=== PATIENT | female | born 1970 | race Two or more races ===

== ENCOUNTER 2025-05-15 15:44 | Inpatient (IN) | payer MEDICAID ==
[~2025-05-15] VITALS: Ht 149.9 cm; Wt 53.8 kg
--- NOTE | 2025-05-15 16:30 | ED.PDOC ---
History of Present Illness HPI Comments This is a 54-year old female with past medical history of hypertension, hyperlipidemia and non insulin dependent diabetes mellitus who came in to the ED with the chief complaint of chest pain. She states that the chest pain started at 10am this morning, radiating from the throat down to the middle of the chest, rated as 8/10 in intensity, constant, dull in character and radiating to both arms. She has also had 4-5 episodes of vomiting since this morning, non blood tinged. She denies any shortness of breath, fever, history of GERD. We will admit patient for ischemic cardiac workup with Echo and cardiolite stress test as needed and recommended by hospitalist. EKG was reviewed by cardiology and read as old [place] and they recommended no intervention form cardiology at this time. Chief Complaint: Chest Pain Time Seen by MD: 15:51 Allergies: Coded Allergies: NO KNOWN ALLERGIES (Unverified , 05/15/25) Information Source: Patient, Relative Mode of Arrival: Ambulatory Severity: Moderate Timing: Hours Duration: Since onset Prehospital treatment: None Past Medical History PAST MEDICAL HISTORY: DM, High Lipids, HTN Surgical History: Denies all surgeries TRANSFORMER MECHANIC History: No Pertinent TRANSFORMER MECHANIC History Social History Smoker: Non-Smoker Alcohol: Denies ETOH Use Drugs: Denies Drug Use Constitutional: reports: fatigue; denies: chills, diaphoresis, fever, malaise, sweats, weakness, others EENTM: reports: others (blind in both eyes); denies: blurred vision, double vision, ear bleeding, ear discharge, ear drainage, ear pain, ear ringing, eye pain, eye redness, hearing loss, mouth pain, mouth swelling, nasal discharge, nose bleeding, nose congestion, nose pain, photophobia, tearing, throat pain, throat swelling, voice changes Respiratory: reports: SOB at rest, shortness of breath, SOB with excertion; denies: cough, hemoptysis, orthopnea, stridor, wheezing, others Cardiovascular: reports: chest pain; denies: dizzy spells, diaphoresis, Dyspnea on exertion, edema, irregular heart beat, left arm pain, lightheadedness, palpitations, PND, syncope, others Gastrointestinal: reports: vomiting; denies: abdomen distended, abdominal pain, blood streaked bowels, constipated, diarrhea, dysphagia, difficulty swallowing, hematemesis, melena, nausea, poor appetite, poor fluid intake, rectal bleeding, rectal pain, others Genitourinary: denies: abnormal vagina bleeding, burning, dyspareunia, dysuria, flank pain, frequency, hematuria, incontinence, pain, , vagina discharge, urgency, others Neurological: denies: dizziness, fainting, headache, left sided numbness, left sided weakness, numbness, paresthesia, pre-existing deficit, right sided numbness, right sided weakness, seizure, speech problems, tingling, tremors, weakness, others Musculoskeletal: denies: back pain, gout, joint pain, joint swelling, muscle pain, muscle stiffness, neck pain, others Integumetry: denies: bruises, change in color, change in hair/nails, dryness, laceration, lesions, lumps, rash, wounds, others Allergic/Immunocompromised: denies: Difficulty Healing, Frequent Infections, Hives, Itching, others Hematologic/Lymphatic: denies: anemia, blood clots, easy bleeding, easy bruising, swollen glands, others Endocrine: denies: excessive hunger, excessive sweating, excessive thirst, excessive urination, flushing, intolerance to cold, intolerance to heat, unexplained weight gain, unexplained weight loss, others Psychiatric: denies: anxiety, bipolar disorder, depression, hopeless, panic disorder, schizophrenia, sleepless, suicidal, others Physical Exam General Appearance: Normal HEENT: Normal ENT Inspection, Other (blind in both eyes) Neck: Full Range of Motion, Non-Tender, Normal Inspection Respiratory: No Respiratory Distress, Normal Breath Sounds Cardiovascular: No Edema, No Murmur, Normal Peripheral Pulses, Regular Rate/Rhythm Breast Exam: Normal Gastrointestinal: No Organomegaly, Non Tender, No Pulsatile Mass, Normal Bowel Sounds Genitalia: Deferred Pelvic: Deferred Rectal: Deferred Extremities: Normal capillary refill, Normal inspection, Normal range of motion, Non-tender, No pedal edema Neurologic: Abnormal Gait Cerebellar Function: Normal Reflexes: Normal Skin: Normal Color Lymphatic: No Adenopathy Was a procedure done? Was a procedure done?: No Differential Dx Considerations may include: ACS, NSTEMI, CHF, costochondritis, GERD X-Ray, Labs, Meds, VS Vital Signs Date Time Temp Pulse Resp B/P (MAP) Pulse Ox O2 Delivery O2 Flow Rate FiO2 12/29/25 15:57 122 05/15/25 15:48 97.8 127 18 109/73 94 97.8 Lab Test 05/15/25 16:04 Range/Units White Blood Count 11.8 H 4.4-10.8 10^3/uL Red Blood Count 5.15 4.0-5.20 10^6/uL Hemoglobin 14.9 12.2-16.2 g/dL Hematocrit 43.8 36.0-46.0 % Mean Corpuscular Volume 85.0 80.0-100.0 fL Mean Corpuscular Hemoglobin 28.9 28.0-32.0 pg Mean Corpuscular Hemoglobin Concent 34.0 32.0-36.0 g/dL Red Cell Distribution Width 13.5 11.8-14.3 % Platelet Count 272 140-450 10^3/uL Mean Platelet Volume 9.2 6.9-10.8 fL Neutrophils (%) (Auto) 86.9 H 37.0-80.0 % Lymphocytes (%) (Auto) 11.3 10.0-50.0 % Monocytes (%) (Auto) 1.2 0.0-12.0 % Eosinophils (%) (Auto) 0.1 0.0-7.0 % Basophils (%) (Auto) 0.5 0.0-2.0 % Neutrophils # (Auto) 10.3 H 1.6-8.6 10 ^3/uL Lymphocytes # (Auto) 1.3 0.4-5.4 10 ^3/uL Monocytes # (Auto) 0.1 0-1.3 10 ^3/uL Eosinophils # (Auto) 0 0-0.8 10 ^3/uL Basophils # (Auto) 0.1 0-0.2 10 ^3/uL Nucleated Red Blood Cells 0.0 % Sodium Level 136 136-145 mmol/L Potassium Level 3.5 3.5-5.1 mmol/L Chloride Level 94 L 98-107 mmol/L Carbon Dioxide Level 27 20-31 mmol/L Anion Gap 15 5-15 Blood Urea Nitrogen 13 9-23 mg/dL Creatinine 1.06 H 0.550-1.02 mg/dL Glomerular Filtration Rate Calc 62 >90 mL/min BUN/Creatinine Ratio 12.3 10.0-20.0 Serum Glucose 405 *H 74-106 mg/dL Hemoglobin A1c Pending Calcium Level 9.8 8.7-10.4 mg/dL Troponin I High Sensitivity 545 *H </=34 ng/L Time of 1ST Reevaluation: 16:30 Reevaluation 1ST: Unchanged Patient Education/Counseling: Diagnosis, Treatment, Prognosis Family Education/Counseling: Diagnosis, Treatment, Prognosis SEPSIS Sepsis Screen Date sepsis recognized/suspect: May 15, 2025 Time Sepsis recognized/suspect: 1548 Recent Procedure: No On Antibiotic Therapy: No Respiratory Rate >20: No Heart Rate >90: Yes (127) Temp<36 C (96.8 F) or >38.3 C: No SBP <90 or MAP <65 mmHG: No New Acute Mental Status Change: No Is the patient on CPAP, BIPAP,: No Physician Orders Troponin-I Hs (05/15/25 15:46) Electrocardigram (05/15/25 15:46) Troponin-I Hs (05/15/25 16:46) Troponin-I Hs (05/15/25 18:46) Electrocardigram (05/15/25 16:46) Electrocardigram (05/15/25 18:46) Complete Blood Count (05/15/25 16:17) Basic Metabolic Panel (05/15/25 16:17) Chest Xray 1 View (05/15/25 16:17) Vital Signs Date Time Temp Pulse Resp B/P (MAP) Pulse Ox O2 Delivery O2 Flow Rate FiO2 05/15/25 15:57 122 05/15/25 15:48 97.8 127 18 109/73 94 97.8 Laboratory Tests Test 05/15/25 16:04 White Blood Count 11.8 10^3/uL (4.4-10.8) H Departure 1 Departure Time of Disposition: 16:30 Impression: Primary Impression: Chest pain Additional Impressions: Acute myocardial infarction Musculoskeletal chest pain Angina pectoris Disposition: 30 STILL A PATIENT Condition: Fair Critical Care Note Critical Care Time?: No Stability Stability form required: No Heart Score Heart Score: Heart Score Response (Comments) Value History Moderate Suspicious 1 EKG Repolarization Disturb 1 Age 45-64 1 Risk Factors >3 or Hx ASHD 2 Troponin N/A 0 Total 5 LIZETTE STOUT RESIDENT May 15, 2025 16:30
[2025-05-15 16:35] LABS: Hematocrit 43.8 % (36.0-46.0); Hemoglobin 14.9 g/dL (12.2-16.2); Mean Corpuscular Hemoglobin 28.9 pg (28.0-32.0); Mean Corpuscular Volume 85.0 fL (80.0-100.0); Nucleated Red Blood Cells % 0.0 %
[2025-05-15 16:38] LABS: Sodium 136 mmol/L (136-145)
[2025-05-15 16:39] LABS: Anion Gap 15 (5-15); Carbon Dioxide 27 mmol/L (20-31)
[2025-05-15 16:40] LABS: Calcium 9.8 mg/dL (8.7-10.4); Chloride 94 mmol/L (98-107); Potassium 3.5 mmol/L (3.5-5.1)
[2025-05-15 16:45] LABS: BUN/Creatinine Ratio 12.3 (10.0-20.0); Blood Urea Nitrogen 13 mg/dL (9-23)
[2025-05-15 16:58] LABS: Glucose 405 mg/dL (74-106)
--- NOTE | 2025-05-15 16:59 | DVH ---
CHEST RADIOGRAPH INDICATION: chest pain TECHNIQUE: Single frontal view of the chest was obtained COMPARISON: None FINDINGS: Lines and Tubes: None Lungs: No focal consolidation. Pleura: No effusion. No pneumothorax. Cardiomediastinal contours: Unremarkable Bones: No acute osseous abnormality. IMPRESSION: 1. No acute cardiopulmonary disease.
[2025-05-15] MEDS: ONDANSETRON HCL 4 MG/2 ML VIAL IV ONE (18:58)
[2025-05-15] MEDS: InsuLIN REG 1unit/0.01ml Soln (100units/ml) SC ONE (19:00)
[2025-05-15 19:27] LABS: INR 0.97 (0.9-1.15); Partial Thromboplastin Time 26.8 SEC (24.5-34.5); Prothrombin Time 10.3 sec (9.3-11.8)
[2025-05-15 19:47] VITALS: PULSE 116; O2SAT 94
[2025-05-15] MEDS ORDERED: DOCUSATE SOD 100 MG CAP PO PRN (20:00)
[2025-05-15] MEDS ORDERED: ACETAMINOPHEN 325 MG TAB PO PRN (20:00)
[2025-05-15] MEDS ORDERED: HYDROcodone-ACET 5/325MG TAB PO PRN (20:00)
[2025-05-15] MEDS ORDERED: DEXTROSE (50%) 50ML SYRG IV PRN (20:00)
[2025-05-15] MEDS ORDERED: HEPARIN DRIP/D5W 100UNITS/ML 250 ML IV SCH (20:15)
[2025-05-15] MEDS ORDERED: HEPARIN SODIUM (PORCINE) 5000 UNITS/ML 1ML VIAL IV ONE (20:15)
[2025-05-15] MEDS: HEPARIN SODIUM (PORCINE) 5000 UNITS/ML 1ML VIAL IV ONE (20:45)
[2025-05-15] MEDS: HEPARIN DRIP/D5W 100UNITS/ML 250 ML IV SCH (20:48)
[2025-05-15] MEDS: MORPHINE SULFATE INJ 2 MG/ml SYRG IV ONE (21:32)
[2025-05-15] MEDS: SODIUM CHLORIDE 0.9% 1,000 ML IV SCH (21:43)
[2025-05-15] MEDS: ACCU-CHEK COMFORT CURVE STRIP VI SCH (21:53)
[2025-05-15] MEDS: InsuLIN REG 1unit/0.01ml Soln (100units/ml) SC SCH (22:06)
[2025-05-15] MEDS: METOPROLOL TARTRATE 50 MG TAB PO SCH (22:07)
--- NOTE | 2025-05-15 22:57 | DVHHP2 ---
History of Present Illness Reason for Visit: Acute coronary syndrome History of Present Illness The patient is a 54-year-old female legally blind with past medical history of diabetes mellitus, hyperlipidemia, and hypertension who presented to [facility] ED with complaint of chest pain. Son/patient reports that she has been experiencing substernal chest pain since this morning, radiating from the throat down to the middle of the chest, both arms, rated 8/10 numeric scale, constant, dull sensation, associated with episodes of vomiting, getting worse that prompted this visit. Patient was seen and evaluated in the ED, laboratory data shows WBC 11.8, platelets 272, sodium 136, potassium 3.5, BUN 13, creatinine 1.06, GFR 62, glucose 405, hemoglobin A1c 11.4, TSH 0.61, calcium 9.8, troponin 545 trending up, blood pressure 139/89, heart rate 114,, temperature 99.1 F, O2 saturation 96% on oxygen. Chest x-ray show no acute cardiopulmonary disease. EKG was reviewed by cardiology and read as old [place] and they recommended no intervention from cardiology at this time. Please see [facility] orders section in the computer. On my assessment, patient denied chest pain at this moment, no headache, dizziness, diaphoresis, currently on oxygen, no diarrhea, nausea, vomiting, fever, no chills. Patient was admitted for further evaluation and medical management. Past Medical History DM, High Lipids, HTN Past Surgical History Denies all surgeries Family History Reviewed, noncontributory to the management of this case. Past Social History The patient lives at home, denies smoking, alcohol or illicit drugs abuse. Review of Systems Constitutional: Yes: Weakness; No: Fever, Chills, Sweats, Malaise, Other Eyes: Other (Blind in both eyes); No: Pain, Vision change, Conjunctivae inflammation, Eyelid inflammation, Redness ENT: No: Ear pain, Ear discharge, Nose pain, Nose discharge, Nose congestion, Mouth pain, Mouth swelling, Throat pain, Throat swelling, Other Respiratory: Shortness of breath, SOB with excertion, Other (SOB at rest); No: Cough, Dry, Wheezing, Hemoptysis, Pleuritic Pain, Sputum, Wheezing Cardiovascular: Chest Pain; No: Palpitations, Orthopnea, Paroxysmal Noc. Dyspnea, Edema, Lt Headedness, Other Gastrointestinal: Vomiting; No: Nausea, Abdominal Pain, Diarrhea, Constipation, Melena, Hematochezia, Other Genitourinary: No Dysuria, No Frequency, No Incontinence, No Hematuria, No Retention, No Other Musculoskeletal: No: other, neck pain, shoulder pain, arm pain, back pain, hand pain, leg pain, foot pain Skin: No: Rash, Lesions, Jaundice, Bruising, Other Neurological: No: Weakness, Numbness, Incoordination, Change in speech, Confusion, Seizures, Other Allergies: Coded Allergies: NO KNOWN ALLERGIES (Unverified , 05/15/25) Medications Current Medications Medications Dose Ordered Sig/Sunita Route Start Time Stop Time Status Last Admin Dose Admin Aspirin 81 mg DAILY PO 05/16/25 10:00 Metoprolol Tartrate 50 mg BID PO 05/15/25 22:00 05/15/25 22:07 50 MG Amlodipine Besylate 5 mg DAILY PO 05/16/25 10:00 Diagnostic Test (Pha) 1 strip IQ4HR 05/15/25 20:00 05/15/25 21:53 1 STRIP Insulin Human Regular IQ4HR SC 05/15/25 20:00 05/15/25 22:06 9 UNITS Dextrose 50 ml UD PRN IV 05/15/25 20:00 Sodium Chloride 1,000 ml @ 60 mls/hr [id number] IV 05/15/25 20:00 05/15/25 21:43 60 MLS/HR Acetaminophen/ Hydrocodone Bitart 1 tab Q4HP PRN PO 05/15/25 20:00 Ondansetron HCl 4 mg Q4HP PRN IV 05/15/25 20:00 Docusate Sodium 100 mg BIDPRN PRN PO 05/15/25 20:00 Acetaminophen 650 mg Q6HP PRN PO 05/15/25 20:00 Heparin Sodium/ Dextrose 250 ml @ 6 mls/hr Q24H IV 05/15/25 20:30 05/15/25 20:48 6 MLS/HR Exam Vital Signs Vital Signs Date Time Temp Pulse Resp B/P (MAP) Pulse Ox O2 Delivery O2 Flow Rate FiO2 05/15/25 22:07 117 120/59 05/15/25 19:47 99.3 16 94 99.3 05/15/25 19:47 Room Air* 0 21 General Appearance: Alert, Oriented X3, Cooperative, No acute distress HEENT: Atraumatic, PERRLA, EOMI, Mucous membr. moist/pink Respiratory: Normal air movement Cardiovascular: Regular rate, Normal S1, Normal S2, No murmurs Abdominal: Normal bowel sounds, Soft, No tenderness, No hepatospenomegaly, No masses Extremities: No clubbing, No cyanosis, No edema, Normal pulses, No tenderness/swelling Skin: No rashes, No significant lesion Neuro: Normal speech, Normal tone, Sensation intact, Cranial nerves 3-12 NL, Reflexes 2+, Other (Generalized weakness) Psych/Mental Status: Mental status NL, Mood NL Labs/Xrays Labs Test 05/15/25 21:51 05/15/25 19:30 05/15/25 17:10 05/15/25 16:04 Range/Units POC Glucose 264 H 70-106 mg/dl Troponin I High Sensitivity 2814 *H </=34 ng/L Thyroid Stimulating Hormone (TSH) 0.61 0.55-4.78 uIU/mL White Blood Count 11.8 H 4.4-10.8 10^3/uL Red Blood Count 5.15 4.0-5.20 10^6/uL Hemoglobin 14.9 12.2-16.2 g/dL Hematocrit 43.8 36.0-46.0 % Mean Corpuscular Volume 85.0 80.0-100.0 fL Mean Corpuscular Hemoglobin 28.9 28.0-32.0 pg Mean Corpuscular Hemoglobin Concent 34.0 32.0-36.0 g/dL Red Cell Distribution Width 13.5 11.8-14.3 % Platelet Count 272 140-450 10^3/uL Mean Platelet Volume 9.2 6.9-10.8 fL Neutrophils (%) (Auto) 86.9 H 37.0-80.0 % Lymphocytes (%) (Auto) 11.3 10.0-50.0 % Monocytes (%) (Auto) 1.2 0.0-12.0 % Eosinophils (%) (Auto) 0.1 0.0-7.0 % Basophils (%) (Auto) 0.5 0.0-2.0 % Neutrophils # (Auto) 10.3 H 1.6-8.6 10 ^3/uL Lymphocytes # (Auto) 1.3 0.4-5.4 10 ^3/uL Monocytes # (Auto) 0.1 0-1.3 10 ^3/uL Eosinophils # (Auto) 0 0-0.8 10 ^3/uL Basophils # (Auto) 0.1 0-0.2 10 ^3/uL Nucleated Red Blood Cells 0.0 % Prothrombin Time 10.3 9.3-11.8 sec Prothrombin Time INR 0.97 0.9-1.15 Activated Partial Thromboplast Time 26.8 24.5-34.5 SEC Sodium Level 136 136-145 mmol/L Potassium Level 3.5 3.5-5.1 mmol/L Chloride Level 94 L 98-107 mmol/L Carbon Dioxide Level 27 20-31 mmol/L Anion Gap 15 5-15 Blood Urea Nitrogen 13 9-23 mg/dL Creatinine 1.06 H 0.550-1.02 mg/dL Glomerular Filtration Rate Calc 62 >90 mL/min BUN/Creatinine Ratio 12.3 10.0-20.0 Serum Glucose 405 *H 74-106 mg/dL Hemoglobin A1c 11.4 H <5.7 % A1C Calcium Level 9.8 8.7-10.4 mg/dL PATIENT: TOO BOSCHAACCT: [id number] UNIT: [id number] : 1970 LOC: ER ROOM / BED: / AGE / SEX: 54 / F ADM STATUS: REG ER SERVICE 16 ORDERING PHYSICIAN: LIZETTE STOUT RESIDENT PROCEDURE(s): CXR1 - CHEST XRAY 1 VIEW REASON: chest pain ORDER NUMBER(s): [id number], ACCESSION NUMBER(s): [id number] CHEST RADIOGRAPH INDICATION: chest pain TECHNIQUE: Single frontal view of the chest was obtained COMPARISON: None FINDINGS: Lines and Tubes: None Lungs: No focal consolidation. Pleura: No effusion. No pneumothorax. Cardiomediastinal contours: Unremarkable Bones: No acute osseous abnormality. IMPRESSION: 1. No acute cardiopulmonary disease. SEPSIS Sepsis Screen Date sepsis recognized/suspect: May 15, 2025 Time Sepsis recognized/suspect: 1954 Recent Procedure: No On Antibiotic Therapy: No Respiratory Rate >20: No Heart Rate >90: No Temp<36 C (96.8 F) or >38.3 C: No SBP <90 or MAP <65 mmHG: No New Acute Mental Status Change: No Is the patient on CPAP, BIPAP,: No Physician Orders Electrocardigram (05/15/25 15:46) Electrocardigram (05/15/25 16:46) Electrocardigram (05/15/25 18:46) Chest Xray 1 View (05/15/25 16:17) * Cardiology Consult (05/15/25 17:02) Stat Ekg For Chest Pain (05/15/25 17:05) Urinalysis (05/15/25 17:16) Heparin Per Pharmacy Protocol (05/15/25 18:38) Aspirin Chewable Tablet (05/16/25 10:00) Consistent Carb(Ccho)Diabetes (05/16/25 Breakfast) Metoprolol Tartrate Tablet (Lopressor Ta (05/15/25 22:00) Amlodipine Tablet (Norvasc Tablet) (05/16/25 10:00) Glucose Blood (Accu-Chek Comfort Curve T (05/15/25 20:00) Insulin R (Human) (Insulin R) (05/15/25 20:00) Dextrose 50% Syringe (05/15/25 20:00) Allergies (05/15/25 19:55) Code Status (05/15/25 19:55) Sodium Chloride 0.9% (05/15/25 20:00) Oxygen Per Hour (05/15/25 19:55) Hydrocodone-Acet 5/325mg Tab ([place] 5/32 (05/15/25 20:00) Ondansetron Hcl (Zofran) (05/15/25 20:00) Docusate Sodium Capsule (Colace Capsule) (05/15/25 20:00) Complete Blood Count (05/16/25 04:00) Comprehensive Metabolic Panel (05/16/25 04:00) Condition: Serious (05/15/25 19:55) Acetaminophen Tablet (Tylenol Tablet) (05/15/25 20:00) Bedrest With Bathroom Privileg (05/15/25 19:55) Maintain Bed Rest (05/15/25 19:55) Sequential Compression Device (05/15/25 ) Platelet Monitoring (05/15/25 20:01) Heparin Per Standardized Proce (05/15/25 20:01) Discontinue All Im Injections (05/15/25 20:01) Heparin Drip/D5w 100units/Ml (05/15/25 20:30) PTPTT (05/16/25 02:45) Vital Signs Date Time Temp Pulse Resp B/P (MAP) Pulse Ox O2 Delivery O2 Flow Rate FiO2 05/15/25 22:07 117 120/59 05/15/25 19:47 99.3 116 16 136/80 (98) 94 99.3 05/15/25 19:47 116 94 Room Air* 0 21 05/15/25 18:45 99.1 117 12 139/89 (106) 96 99.1 05/15/25 18:25 117 05/15/25 17:55 99.6 120 20 138/79 (98) 96 99.6 05/15/25 15:57 122 05/15/25 15:48 97.8 127 18 109/73 94 97.8 Laboratory Tests Test 05/15/25 16:04 White Blood Count 11.8 10^3/uL (4.4-10.8) H Medications Medications Dose Ordered Sig/Sunita Route Start Time Stop Time Status Last Admin Dose Admin Aspirin 325 mg ONCE ONCE PO 05/15/25 17:15 05/15/25 17:16 DC 05/15/25 18:58 325 MG Diagnostic Test (Pha) 1 strip IQ4HR 05/15/25 20:00 05/15/25 21:53 1 STRIP Heparin Sodium (Porcine) 3,000 units ONCE ONCE IV 05/15/25 17:15 05/15/25 17:16 DC 05/15/25 20:45 3,000 UNITS Heparin Sodium/ Dextrose 250 ml @ 6 mls/hr Q24H IV 05/15/25 20:30 05/15/25 20:48 6 MLS/HR Insulin Human Regular IQ4HR SC 05/15/25 20:00 05/15/25 22:06 9 UNITS Insulin Human Regular 5 units ONCE ONCE SC 05/15/25 17:15 05/15/25 17:37 DC 05/15/25 19:00 5 UNITS Metoprolol Tartrate 50 mg BID PO 05/15/25 22:00 05/15/25 22:07 50 MG Ondansetron HCl 4 mg ONCE ONCE IV 05/15/25 17:00 05/15/25 17:15 DC 05/15/25 18:58 4 MG Sodium Chloride 1,000 ml @ 60 mls/hr [id number] IV 05/15/25 20:00 05/15/25 21:43 60 MLS/HR Assessment/Plan Assessment/Plan Acute coronary syndrome Acute respiratory distress Diabetes mellitus with hyperglycemia Uncontrolled diabetes mellitus Generalized weakness Plan 1. Admit to telemetry unit 2. Breathing treatment 3. Pain control management 4. Management of fluids and electrolytes 5. Consultation for Cardiology 6. Diagnostic tests chest x-ray 7. DVT prophylaxis-on heparin 8. Repeat labs CBC, CMP in a.m. 9. Continue with current medical management 10. Treatment plan discussed with patient and RN. Patient verbalized understanding. Plan discussed with: Patient, Other (RN) My Orders Orders - KAYLA STOLL DNP Procedure Category Date Status Time Aspirin Chewable PHA 05/16/25 In Process Tablet 10:00 Consistent DIET 05/16/25 Transmitted Carb(Ccho)Diabetes Breakfast Metoprolol Tartrate PHA 05/15/25 In Process Tablet (Lopressor Ta 22:00 Amlodipine Tablet PHA 05/16/25 In Process (Norvasc Tablet) 10:00 Glucose Blood PHA 05/15/25 In Process (Accu-Chek Comfort 20:00 Insulin R (Human) PHA 05/15/25 In Process (Insulin R) 20:00 Dextrose 50% Syringe PHA 05/15/25 In Process 20:00 Allergies CASIE 05/15/25 In Process 19:55 Code Status CODE 05/15/25 Transmitted 19:55 Sodium Chloride 0.9% PHA 05/15/25 In Process 20:00 Oxygen Per Hour RT 05/15/25 Transmitted 19:55 Hydrocodone-Acet PHA 05/15/25 In Process 5/325mg Tab ([place] 20:00 Ondansetron Hcl PHA 05/15/25 In Process (Zofran) 20:00 Docusate Sodium PHA 05/15/25 In Process Capsule (Colace 20:00 Complete Blood Count LAB 05/16/25 Verified 04:00 Comprehensive LAB 05/16/25 Verified Metabolic Panel 04:00 Condition: Serious CASIE 05/15/25 In Process 19:55 Acetaminophen Tablet PHA 05/15/25 In Process (Tylenol Tablet) 20:00 Bedrest With Bathroom CASIE 05/15/25 In Process Privileg 19:55 Maintain Bed Rest CASIE 12/29/25 In Process 19:55 Sequential CASIE 05/15/25 In Process Compression Device Problem List: (1) Acute coronary syndrome (2) Acute respiratory distress (3) Diabetes mellitus with hyperglycemia (4) Uncontrolled diabetes mellitus (5) Generalized weakness Date of Service: May 15, 2025 Billing Provider: KAYLA STOLL DNP Common Visit Codes: [id number] INP/OBS CARE (HIGH) KAYLA STOLL DNP May 15, 2025 22:57
[2025-05-15] MEDS ORDERED: NITROGLYCERIN 0.4 MG SL TAB SL PRN (23:00)
[2025-05-15] MEDS ORDERED: MORPHINE SULFATE INJ 2 MG/ml SYRG IV PRN (23:00)
[2025-05-16] VITALS (51 sets, daily range): BP systolic 77–140; BP diastolic 38–80; PULSE 76–120; RESP 10–20; TEMP 98.2; O2SAT 91–100
[2025-05-16 02:13] LABS: Urine Protein, UAD Negative (Negative)
[2025-05-16] MEDS: SODIUM CHLORIDE 0.9% 1,000 ML IV ONE (02:35)
[2025-05-16] MEDS: DOPamine 1600MCG/ML D5W 250 ML IV SCH (03:45)
[2025-05-16] MEDS: DOPamine 1600MCG/ML D5W 250 ML IV ONE (03:53)
[2025-05-16 03:57] LABS: INR 1.04 (0.9-1.15); Prothrombin Time 11.0 sec (9.3-11.8)
[2025-05-16 03:58] LABS: Alanine Aminotransferase 35 U/L (7-40); Albumin 4.2 g/dL (3.2-4.8); Alkaline Phosphatase 75 U/L (46-116); Anion Gap 10 (5-15); BUN/Creatinine Ratio 15.7 (10.0-20.0); Blood Urea Nitrogen 18 mg/dL (9-23); Calcium 9.0 mg/dL (8.7-10.4); Carbon Dioxide 29 mmol/L (20-31); Chloride 104 mmol/L (98-107); Glucose 88 mg/dL (74-106); Partial Thromboplastin Time 74.3 SEC (24.5-34.5); Sodium 143 mmol/L (136-145); Total Protein 6.9 g/dL (5.7-8.2)
[2025-05-16 03:59] LABS: Bilirubin, Total 0.4 mg/dL (0.2-1.0)
[2025-05-16 04:02] LABS: Potassium 3.3 mmol/L (3.5-5.1)
[2025-05-16] MEDS: ONDANSETRON HCL 4 MG/2 ML VIAL IV PRN (04:22)
[2025-05-16] MEDS: PROCHLORPERAZINE EDISYLATE 5 MG/ML 2ML VIAL IV PRN (05:28)
[2025-05-16 06:18] LABS: Hematocrit 40.1 % (36.0-46.0); Hemoglobin 13.3 g/dL (12.2-16.2); Mean Corpuscular Hemoglobin 28.3 pg (28.0-32.0); Mean Corpuscular Volume 85.5 fL (80.0-100.0); Nucleated Red Blood Cells % 0.1 %
--- NOTE | 2025-05-16 06:57 | ECG ---
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
--- NOTE | 2025-05-16 07:00 | ECG ---
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
--- NOTE | 2025-05-16 07:00 | ECG ---
[facility] Test Date: 2025-05-15 Test Time: 17:06:45 Pat Name: ASHUTOSH KENNY Department: ED Room: [address] [place] [address] Gender: F Job Boss: GAMA : 1970 Requested By: PRAVEEN JEFFERY Order Number: [id number] Reading MD: Geovany Wyatt Measurements Intervals [place] Rate: 123 P: 92 NM: 138 QRS: 71 QRSD: 99 T: 210 QT: 326 QTc: 467 Interpretive Statements Sinus tachycardia Inferior infarct, age indeterminate Anterolateral infarct, age indeterminate Baseline wander in lead(s) V3,V5,V6 Electronically Signed On 05-18-2025 17:04:29 PST by Geovany Wyatt Please click the below link to view image of tracing.
[2025-05-16] MEDS: IODIXANOL 320MG/ML 100ML BTL IV ONE (07:34)
[2025-05-16] MEDS: HEPARIN IN NS 1000Units/500mL 1,500 ML ONE (07:34)
[2025-05-16] MEDS: MIDAZOLAM HCL 2MG/2ML 2ml VIAL (1mg/ml) ONE (07:36)
[2025-05-16] MEDS: fentaNYL CITRATE 100 MCG/2 ML VL ONE (07:36)
[2025-05-16] MEDS: ANGIOMAX 250 MG VIAL IV ONE (07:36)
[2025-05-16] MEDS: SODIUM CHL 0.9% 50 ML ONE (07:36)
[2025-05-16] MEDS: LIDOCAINE 2%HCL (LOCAL ANESTH.) INJ 20ML MDV ONE (07:36)
[2025-05-16] MEDS: NOREPINEPHRINE 8 MG/250ML KIT 0 ML IV ONE (08:31)
--- NOTE | 2025-05-16 09:48 | DVHOP ---
DATE OF SURGERY: 05/16/2025 TECHNIQUE PERFORMED: * Emergency case. * Ultrasound of the right femoral artery. * Insertion of a 6-Azerbaijani arterial line in the right femoral artery under fluoroscopic guidance. * Left and right heart catheterization. * Left ventriculogram. * [place] selective left and right coronary artery angiography. COMPLICATIONS: None. ASSISTANTS: Assisted by our staff here are Sonia Shipman, Nomi, Clare, and Aman. INDICATIONS: The indication for followup is having acute myocardial infarction; QS pattern in 2, 3, and aVF; and troponin now went up to 29,000. DESCRIPTION OF PROCEDURE: In a standard manner, risks, benefits and alternatives have been discussed kidney failure. Right groin was shaved, was cleaned with soap and Betadine. Ultrasound was done. Lidocaine was given. IV Versed and fentanyl were given. The artery was punctured under ultrasound guidance. A wire was passed. The needle was removed. A 6-Azerbaijani arterial line was placed in a standard manner under fluoroscopy and JL 3.5 guidewire and done with the help of the JR 3.5 catheter was performed. At the end of the procedure, we also did a left heart catheterization and a left ventriculogram was done in the CRYSTAL view with a total of about 20 mL of dye. The procedure was completed. IMPRESSION: * Normal left main. * Left anterior descending artery in its mid region has critical narrowing in the range of 95% plus. 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 * The right coronary artery is 100% blocked at the proximal one-third region. REBECCA 0 flow. * The left ventricle revealed inferior wall hypokinesis and a dilated left ventricle. Ejection fraction is in the range of about 20-25%. PLAN OF ACTION: At this time, we need to do intervention on the right coronary artery. Tay Quintero MD MP/KERRY TID: [id number] RECEIPT: [id number] JOSEPH
--- NOTE | 2025-05-16 10:50 | DVHOP ---
TECHNIQUE PERFORMED: * Emergency case. * Ultrasound of the right femoral artery. * Management of conscious sedation. * A fluoroscopic-guided insertion of a 6-Italian arterial line from the right femoral artery. * Right coronary artery angiography. * The mechanical thrombectomy of the right coronary artery with the help of the Penumbra catheter. * Balloon angioplasty of the right coronary artery with a 1.5 x 20 mm length semi-compliant balloon. * Balloon angioplasty of proximal, mid, and distal lesion of the right coronary artery with a 2.0 x 30 mm length semi-compliant balloon. * The right iliofemoral artery angiography. * Arteriotomy and Angio-Seal of the right femoral artery. COMPLICATIONS: None. ASSISTANTS: Assisted by Ramonita. Other assistants here are Sonia, Nomi, and Clare. INDICATIONS: Acute inferior wall myocardial infarction, Q wave pattern II, III, and aVF. DESCRIPTION OF PROCEDURE: The patient's procedures, risks and benefits discussed. Standard manner, the patient had been brought to the medical laboratory technician. The patient's right groin was shaved, was cleaned with soap and Betadine. A 6-Italian arterial line also had been placed under ultrasound guidance. A 6-Italian JR 3.5 guiding catheter was passed. Angiomax was started and subsequently we put a Prowater wire, which went into the middle region of the right coronary artery. Did not advance further, so now I have put a ChoICE extra support wire, which was able to go through the lesion all the way to the posterolateral branch of the right coronary artery. Subsequently, we have put a Penumbra catheter. Mechanical thrombectomy was done and then subsequently a 1.5 balloon was passed and balloon angioplasty was done. Then a 2.0 balloon was passed and approximately mid and distally balloon angioplasty was done. Subsequently, now again a 1.5 balloon was passed from mid distally and angioplasty of the entire right coronary artery was done well. Procedure went well. At this time, we have not done any stenting because the patient has severe chronic coronary artery disease and she may qualify for open heart surgery and her artery and please also note that the posterior descending artery and posterolateral branch are very tiny branches. Now subsequently, the balloon, wire, catheter all have been discontinued. The right iliofemoral artery angiography was done. Arteriotomy and Angio-Seal was done. IMPRESSION: Prior to performing the procedure: Right coronary artery proximally 100% acute on chronic occlusion. REBECCA grade 0 flow. Calcified artery, type 3 lesion and right coronary artery considered to be a dominant artery. Postprocedure, REBECCA grade 3 flow. No spasm, no dissection, no thrombosis. Calcified artery with REBECCA grade 3 flow has been noted from all the way from the mid region all the way to the distal region of the right coronary artery. PLAN OF ACTION: At this time, advised aspirin one a day. Transfer to higher level [facility]. The patient will call if she can qualify for open heart surgery. Discussed along with the patient's son in person. Tay Quintero MD MP/SONYA TID: [id number] RECEIPT: [id number]
--- NOTE | 2025-05-16 12:27 | DVHPN2 ---
Subjective Patient denies any chest pain at this time Reviewed: Care Plan, H&P, Labs, Medications Changes from previous H/P or p: No Changes General: Per HPI Eyes: No Pain, No Vision change, No Conjunctivae inflammation, No Eyelid inflammation; Other (Blind in both eyes); No Redness ENT: No Ear pain, No Ear discharge, No Nose pain, No Nose discharge, No Nose congestion, No Mouth pain, No Mouth swelling, No Throat pain, No Throat swelling, No Other Cardiovascular: Chest Pain; No Palpitations, No Orthopnea, No Paroxysmal Noc. Dyspnea, No Edema, No Lt Headedness, No Other Respiratory: No Cough, No Dry; Shortness of breath, SOB with excertion; No Wheezing, No Hemoptysis, No Pleuritic Pain, No Sputum; Other (SOB at rest) Gastrointestinal: No Nausea; Vomiting; No Abdominal Pain, No Diarrhea, No Constipation, No Melena, No Hematochezia, No Other Genitourinary: No Dysuria, No Frequency, No Incontinence, No Hematuria, No Retention, No Other Musculoskeletal: No other, No neck pain, No shoulder pain, No arm pain, No back pain, No hand pain, No leg pain, No foot pain Skin: No Rash, No Lesions, No Jaundice, No Bruising, No Other Objective Vitals Vital Signs Date Time Temp Pulse Resp B/P (MAP) Pulse Ox O2 Delivery O2 Flow Rate FiO2 05/16/25 09:45 123/77 05/16/25 07:30 Nasal Cannula* 2 28 05/16/25 07:30 98.4 89 19 95 98.4 Intake/Output Intake and Output 05/16/25 07:00 Intake Total 571.56 ml Balance 571.56 ml Intake IV Total 571.56 ml General Appearance: Alert, Oriented X3, Cooperative HEENT: Atraumatic, PERRLA Lungs: Clear to auscultation, Normal air movement Cardiovascular: Normal S1, Normal S2 Abdomen: Normal bowel sounds, Soft, No tenderness, No hepatospenomegaly Musculoskeletal: Normal sensory function, Normal motor function Skin: Dry, Intact Psych/Mental Status: Mental status NL, Mood NL Medications Current Medications Medications Dose Ordered Sig/Sunita Route Start Time Stop Time Status Last Admin Dose Admin Aspirin 81 mg DAILY PO 05/16/25 10:00 Metoprolol Tartrate 50 mg BID PO 05/15/25 22:00 05/15/25 22:07 50 MG Amlodipine Besylate 5 mg DAILY PO 05/16/25 10:00 Diagnostic Test (Pha) 1 strip IQ4HR 05/15/25 20:00 05/16/25 04:26 1 STRIP Insulin Human Regular IQ4HR SC 05/15/25 20:00 05/16/25 00:04 3 UNITS Dextrose 50 ml UD PRN IV 05/15/25 20:00 Sodium Chloride 1,000 ml @ 60 mls/hr [id number] IV 05/15/25 20:00 05/15/25 21:43 60 MLS/HR Acetaminophen/ Hydrocodone Bitart 1 tab Q4HP PRN PO 05/15/25 20:00 Ondansetron HCl 4 mg Q4HP PRN IV 05/15/25 20:00 05/16/25 04:22 4 MG Docusate Sodium 100 mg BIDPRN PRN PO 05/15/25 20:00 Acetaminophen 650 mg Q6HP PRN PO 05/15/25 20:00 Heparin Sodium/ Dextrose 250 ml @ 6 mls/hr Q24H IV 05/15/25 20:30 05/15/25 20:48 6 MLS/HR Nitroglycerin 0.4 mg Q5MINP PRN SL 05/15/25 23:00 Morphine Sulfate 2 mg Q30M PRN IV 05/15/25 23:00 Dopamine HCl/ Dextrose 250 ml @ 9.863 mls/ hr Q24H IV 05/16/25 03:45 05/16/25 03:45 9.863 MLS/HR Prochlorperazine Edisylate 5 mg Q4HPRN PRN IV 05/16/25 05:15 05/16/25 05:28 5 MG Laboratory Results Laboratory Tests 05/16/25 03:11 05/16/25 05:24 Chemistry Test 05/15/25 16:04 05/16/25 03:11 Calcium Level 9.8 mg/dL (8.7-10.4) 9.0 mg/dL (8.7-10.4) Albumin 4.2 g/dL (3.2-4.8) Total Protein 6.9 g/dL (5.7-8.2) Coagulation Test 05/15/25 16:04 05/16/25 03:11 Prothrombin Time 10.3 sec (9.3-11.8) 11.0 sec (9.3-11.8) Prothrombin Time INR 0.97 (0.9-1.15) 1.04 (0.9-1.15) Activated Partial Thromboplast Time 26.8 SEC (24.5-34.5) 74.3 SEC (24.5-34.5) *H LFT Test 05/16/25 03:11 Alanine Aminotransferase (ALT) 35 U/L (7-40) Alkaline Phosphatase 75 U/L (46-116) Aspartate Amino Transferase (AST) 176 U/L (13-40) H Total Bilirubin 0.4 mg/dL (0.2-1.0) HgA1c, TSH Test 05/15/25 16:04 05/15/25 17:10 Hemoglobin A1c 11.4 % A1C (<5.7) H Thyroid Stimulating Hormone (TSH) 0.61 uIU/mL (0.55-4.78) Urinalysis Test 05/16/25 01:19 Urine Color Light-yellow (Yellow) Urine Clarity Clear (Clear) Urine pH 5.5 (5.0-9.0) Urine Specific [place] 1.025 (1.001-1.035) Urine Protein Negative (Negative) Urine Ketones 3+ (Negative) H Urine Blood Negative /uL (Negative) Urine Nitrite Negative (Negative) Urine Bilirubin Negative (Negative) Urine Urobilinogen Normal mg/dL (Negative) Urine Leukocyte Esterase Negative /uL (Negative) Urine RBC None seen /hpf (0 - 4) Urine Microscopic WBC 3 /HPF (0-5) Urine Squamous Epithelial Cells Few /hpf (<5) Urine Bacteria None seen /hpf (None Seen) Urine Glucose 4+ mg/dL (Normal) H Labs and/or images reviewed: Labs reviewed by me, Image(s) reviewed by me Assessment/Plan Assessment/Plan Impression: -Multivessel coronary artery disease -NSTEMI type 1 -diabetes mellitus -sirs with organ dysfunction -glaucoma -primary hypertension -dyslipidemia -acute systolic heart failure Plan: -patient is assessed and cardiac catheterization recovery room area. Patient received RCA thrombectomy and angioplasty without stent placement. Plans are for transfer to higher level of care for CABG evaluation. This was discussed with the patient. -continue aspirin, add Lovenox 1 milligram/kilogram twice a day -regular insulin sliding scale -potassium replacement -hold beta-blockers given marginal blood pressure -echocardiogram -lipid panel -repeat labs in a.m. -social service consultation for transfer to higher level of care Total time spent with patient discussing and formulating plan of care: 35 minutes. This medical document was created using an electronic medical record system with [employer] dictation system. Although this document has been carefully reviewed, there may still be some phonetic and typographical errors. These areas are purely typographical due to imperfections of the software programs, and do not reflect any compromise in the patient's medical care. Plan discussed with: Patient, Other (RN) My Orders Orders - MIKAYLA REBOLLEDO NP Procedure Category Date Status Time Echo 2d Mode Cardiac US 05/16/25 Verified DOP 12:16 Potassium Effervesent PHA 05/16/25 Verified Tab (Klor-Con/Ef) 12:30 Enoxaparin Sodium PHA 05/16/25 Verified (Lovenox) 22:00 Basic Metabolic Panel LAB 05/17/25 Verified 04:00 Magnesium LAB 05/17/25 Verified 04:00 Complete Blood Count LAB 05/17/25 Verified 04:00 Date of Service: May 16, 2025 Billing Provider: MIKAYLA REBOLLEDO NP Common Visit Codes: [id number] INP/OBS CARE(HIGH) MIKAYLA REBOLLEDO NP May 16, 2025 12:27
[2025-05-16] MEDS: POTASSIUM EFFERVESENT TAB 25 MEQ PO ONE (12:53)
--- NOTE | 2025-05-16 14:43 | DVHCONRES ---
Date Seen: May 16, 2025 Resident Creating Document: JERRY ROSARIO RESIDENT Referring Physician Dr Quintero Reason for Consultation IDDM History of Present Illness Doreen Honeycutt is a 54 year old female patient who present to the ED with chief complaint of retrosternal oppressive chest pain in functional class IV, radiated to jaw, unprovoked, constant which started 10am the day of her admission, intensity 8/10, associated with multiple episodes of nausea and non bloody emesis with yellow vomit. Denies any other associated symptoms. Patient was diagnosed with NSTEMI s/p coronary angiography that shows triple vessel disease with acute on chronic proximal RCA occlusion, deciding PCI with angioplasty and no stent placement, on ASA and parenteral anticoagulation for eventual evaluation in [place] for probable CABG. Endocrinology was consulted for uncontrolled Diabetes. Patient has been diagnosed with diabetes since the age of 20 after gestational diabetes, on Metformin, which she takes occasionally. Past medical history: Hypertension, diabetes non insulin dependent, diabetic retinopathy (legally blind). Surgical history: Denies Family history: Non contributory social history: Lives in [place] with offsprings (NOK son). Denies current tobacco, alcohol and other drug abuse Allergies: Denies Home medication: Metformin (unknown dose) and anti-hypertension medication (does not recall) Patient seen and examined at bedside. Currently continues with nausea and vomiting after PCI. She will be kept NPO. Past Medical History Per HPI Past Surgical History Per HPI Family History Per HPI Social History Per HPI Allergies: Coded Allergies: NO KNOWN ALLERGIES (Unverified , 05/15/25) Current Medications Current Medications Medications (Trade) Dose Ordered Sig/Sunita Route PRN Reason Start Time Stop Time Status Last Admin Aspirin 81 mg DAILY PO 05/16/25 10:00 Metoprolol Tartrate (Lopressor Tablet) 50 mg BID PO 05/15/25 22:00 05/15/25 22:07 Amlodipine Besylate (Norvasc Tablet) 5 mg DAILY PO 05/16/25 10:00 Diagnostic Test (Pha) (Accu-Chek Comfort Curve T) 1 strip IQ4HR 05/15/25 20:00 05/16/25 12:00 Insulin Human Regular (InsuLIN R) IQ4HR SC 05/15/25 20:00 05/16/25 12:00 Dextrose 50 ml UD PRN IV Blood Sugar LESS THAN 60 05/15/25 20:00 Sodium Chloride 1,000 ml @ 60 mls/hr [id number] IV 05/15/25 20:00 05/16/25 12:54 Acetaminophen/ Hydrocodone Bitart ([place] 5/325MG Tab) 1 tab Q4HP PRN PO MODERATE PAIN (4-6 PAIN SCALE) 05/15/25 20:00 Ondansetron HCl (Zofran) 4 mg Q4HP PRN IV NAUSEA / VOMITING 05/15/25 20:00 05/16/25 04:22 Docusate Sodium (Colace Capsule) 100 mg BIDPRN PRN PO FOR CONSTIPATION 05/15/25 20:00 Acetaminophen (Tylenol Tablet) 650 mg Q6HP PRN PO PAIN SCALE 1-3 OR TEMP>100.4 05/15/25 20:00 Heparin Sodium/ Dextrose 250 ml @ 6.312 mls/ hr Q24H IV 05/15/25 20:15 05/15/25 20:56 DC Heparin Sodium/ Dextrose 250 ml @ 6 mls/hr Q24H IV 05/15/25 20:30 05/16/25 12:20 DC 05/15/25 20:48 Nitroglycerin (Ntrostat Sublingual) 0.4 mg Q5MINP PRN SL FOR CHEST PAIN 05/15/25 23:00 Morphine Sulfate 2 mg Q30M PRN IV FOR CHEST PAIN 05/15/25 23:00 Dopamine HCl/ Dextrose 250 ml @ 9.863 mls/ hr Q24H IV 05/16/25 03:45 05/16/25 03:45 Prochlorperazine Edisylate (Compazine Inj) 5 mg Q4HPRN PRN IV NAUSEA / VOMITING 05/16/25 05:15 05/16/25 05:28 Enoxaparin Sodium (Lovenox) 50 mg Q12HR SC 05/16/25 22:00 Review of Systems Per HPI Vital Signs Vital Signs Date Time Temp Pulse Resp B/P (MAP) Pulse Ox O2 Delivery O2 Flow Rate FiO2 05/16/25 13:55 77/43 05/16/25 13:00 83 15 98 05/16/25 07:30 Nasal Cannula* 2 28 05/16/25 07:30 98.4 98.4 Physical Exam Patient lying in bed, in no acute distress General: Lucid, afebrile, mucosae are moist, bilateral leukocoria, strabismic of right eye. Cardiovascular: Normal S1 and S2. No murmurs, gallops or rubs Respiratory: Normal ventilation mechanics. Clear lung sounds on auscultation Abdomen: Soft, nontender, no organomegaly, normal bowel sounds. Vomited food content emesis, non bloody MSK/skin: Mobilizes 4 limbs. Skin is dry and warm Neurological: Oriented in 3 spheres. No motor no sensitive deficits. Labs/Diagnostic Data Labs Test 05/16/25 12:27 05/16/25 05:24 05/16/25 03:11 05/16/25 01:19 Range/Units POC Glucose 214 H 70-106 mg/dl White Blood Count 15.2 #H 4.4-10.8 10^3/uL Red Blood Count 4.69 4.0-5.20 10^6/uL Hemoglobin 13.3 12.2-16.2 g/dL Hematocrit 40.1 36.0-46.0 % Mean Corpuscular Volume 85.5 80.0-100.0 fL Mean Corpuscular Hemoglobin 28.3 28.0-32.0 pg Mean Corpuscular Hemoglobin Concent 33.1 32.0-36.0 g/dL Red Cell Distribution Width 13.6 11.8-14.3 % Platelet Count 222 140-450 10^3/uL Mean Platelet Volume 9.3 6.9-10.8 fL Neutrophils (%) (Auto) 78.7 37.0-80.0 % Lymphocytes (%) (Auto) 14.3 10.0-50.0 % Monocytes (%) (Auto) 6.3 0.0-12.0 % Eosinophils (%) (Auto) 0.4 0.0-7.0 % Basophils (%) (Auto) 0.3 0.0-2.0 % Neutrophils # (Auto) 12.0 H 1.6-8.6 10 ^3/uL Lymphocytes # (Auto) 2.2 0.4-5.4 10 ^3/uL Monocytes # (Auto) 1.0 0-1.3 10 ^3/uL Eosinophils # (Auto) 0.1 0-0.8 10 ^3/uL Basophils # (Auto) 0 0-0.2 10 ^3/uL Nucleated Red Blood Cells 0.1 % Prothrombin Time 11.0 9.3-11.8 sec Prothrombin Time INR 1.04 0.9-1.15 Activated Partial Thromboplast Time 74.3 *H 24.5-34.5 SEC Sodium Level 143 # 136-145 mmol/L Potassium Level 3.3 L 3.5-5.1 mmol/L Chloride Level 104 # 98-107 mmol/L Carbon Dioxide Level 29 20-31 mmol/L Anion Gap 10 5-15 Blood Urea Nitrogen 18 9-23 mg/dL Creatinine 1.15 H 0.550-1.02 mg/dL Glomerular Filtration Rate Calc 56 >90 mL/min BUN/Creatinine Ratio 15.7 10.0-20.0 Serum Glucose 88 74-106 mg/dL Calcium Level 9.0 8.7-10.4 mg/dL Total Bilirubin 0.4 0.2-1.0 mg/dL Aspartate Amino Transferase (AST) 176 H 13-40 U/L Alanine Aminotransferase (ALT) 35 7-40 U/L Alkaline Phosphatase 75 46-116 U/L Troponin I High Sensitivity 48145 *H </=34 ng/L Total Protein 6.9 5.7-8.2 g/dL Albumin 4.2 3.2-4.8 g/dL Urine Color Light-yellow Yellow Urine Clarity Clear Clear Urine pH 5.5 5.0-9.0 Urine Specific [place] 1.025 1.001-1.035 Urine Protein Negative Negative Urine Ketones 3+ H Negative Urine Blood Negative Negative /uL Urine Nitrite Negative Negative Urine Bilirubin Negative Negative Urine Urobilinogen Normal Negative mg/dL Urine Leukocyte Esterase Negative Negative /uL Urine RBC None seen 0 - 4 /hpf Urine Microscopic WBC 3 0-5 /HPF Urine Squamous Epithelial Cells Few <5 /hpf Urine Bacteria None seen None Seen /hpf Urine Glucose 4+ H Normal mg/dL Test 05/15/25 17:10 05/15/25 16:04 Range/Units Thyroid Stimulating Hormone (TSH) 0.61 0.55-4.78 uIU/mL Hemoglobin A1c 11.4 H <5.7 % A1C Assessment Uncontrolled diabetes (Hemoglobin A1C: 11.4%) NSTEMI type 1 Acute newly diagnosed systolic congestive heart failure (HFrEF, LVEF 17%) LELIA hemodynamically mediated (VMN) Transaminitis Hypokalemia Multivessel coronary artery disease - planning on transfer to [facility] Diabetic retinopathy and glaucoma Hypertension Dyslipidemia Non-adherent Plan/Recommendation On Lispro sliding scale IQ4hs, since patient is vomiting and NPO. Hold basal insulin until patient is more stable Status post coronary angiography with PCI with angioplasty and thrombectomy, no stent placement. On ASA, Atorvastatin and parenteral anticoagulation. 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 Planning on transfer to [facility] for complex revascularization of multivessel disease. Since patient continues vomiting, indicated IQ4HS lispro insulin with sliding scale and no basal insulin. Patient warrants aggressive cardiovascular risk factors to improve outcomes. Recommend follow up with endo crinology (Dr Norwood). She will likely require chronic insulin therapy. Patient has poor prognosis. Plan discussed with: Patient, Other (Nurses) Visit Coding STANDARD RES Billing Provider: AURA NORWOOD MD Date of Service if different f: May 16, 2025 Common Visit Codes: [id number] INP/OBS CARE (HIGH) Secondary Visit Codes: [id number] CARE PLAN 30 MINUTES JERRY ROSARIO RESIDENT May 16, 2025 14:42
[2025-05-16] MEDS: SODIUM CHLORIDE 0.9% 1,000 ML IV SCH (15:00)
[2025-05-16] MEDS ORDERED: DEXTROSE (50%) 50ML SYRG IV PRN (15:00)
[2025-05-16] MEDS: SODIUM CHLORIDE 0.9% 250 ML IV ONE (15:00)
[2025-05-16] MEDS ORDERED: HEPARIN SODIUM (PORCINE) 5000 UNITS/ML 1ML VIAL IV ONE (15:30)
--- NOTE | 2025-05-16 16:15 | CONS ---
Pharmacy Clinical Information: HEPARIN DRIP, ACS PROTOCOL HEPARIN DRIP RESTARTED WITH BOLUS OF 4000 UNITS AND RATE OF 600 UNITS/HR NEXT APTT DRAW SCHEDULED @2200 PER RX PROTOCOL CONFIRMED AND READ BACK WITH ZAHEER RAMIREZ ([facility]) ALLISON NASSAR PHARMACIST May 16, 2025 16:15
[2025-05-16] MEDS: HEPARIN SODIUM (PORCINE) 5000 UNITS/ML 1ML VIAL IV ONE (16:37)
[2025-05-16 16:38] LABS: Base Excess 2.0 mmol/L (-2.0-3.0)
[2025-05-16] MEDS: HEPARIN DRIP/D5W 100UNITS/ML 250 ML IV SCH (16:47)
[2025-05-16] MEDS ORDERED: INSULIN LISPRO (HUMAN) 100 UNITS/ML ML SC SCH (17:00)
[2025-05-16] MEDS: ACCU-CHEK COMFORT CURVE STRIP VI SCH (17:04)
[2025-05-16] MEDS: INSULIN LISPRO (HUMAN) 100 UNITS/ML ML SC SCH ×2 (17:20→22:00)
[2025-05-16 17:47] LABS: Hematocrit 37.4 % (36.0-46.0); Hemoglobin 12.3 g/dL (12.2-16.2); Mean Corpuscular Hemoglobin 27.9 pg (28.0-32.0); Mean Corpuscular Volume 85.2 fL (80.0-100.0); Nucleated Red Blood Cells % 0.0 %
--- NOTE | 2025-05-16 17:49 | DVHDS2 ---
Discharge Summary Date of Admission May 15, 2025 at 22:55 Date of Discharge: May 16, 2025 Admitting Diagnosis Acute coronary syndrome Labs/Diagnostic Data: Laboratory Results Test 05/16/25 17:04 05/16/25 16:33 05/16/25 05:24 05/16/25 03:11 POC Glucose 181 mg/dl (70-106) Blood Gas Specimen Type Arterial Blood Gas Sample Site Right radial Blood Gas Patient Temperature 37.0 Arterial Blood Date Drawn [id number] Arterial Blood pH 7.405 (7.350-7.450) Arterial Blood Partial Pressure CO2 44.2 mmHg (32.0-45.0) Arterial Blood Partial Pressure O2 59.1 mmHg (83.0-108.0) Arterial Blood HCO3 27.1 mmol/L (21.0-28.0) Arterial Blood Oxygen Saturation 87.3 % (94.0-98.0) Arterial Blood Base Excess 2.0 mmol/L (-2.0-3.0) Arterial Blood Oxyhemoglobin 85.9 % (94.0-98.0) Arterial Blood Carboxyhemoglobin 1.3 % (0.5-1.5) Arterial Blood Methemoglobin 0.3 % (0.0-1.5) Arterial Blood Deoxyhemoglobin 12.5 % (0.0-5.0) Haile Test Yes Blood Gas Total Hemoglobin 11.80 g/dL (12.0-16.0) Blood Gas Modality Room air Blood Gas Spontaneous Rate 14 FiO2 % 21.0 White Blood Count 15.2 10^3/uL (4.4-10.8) Red Blood Count 4.69 10^6/uL (4.0-5.20) Hemoglobin 13.3 g/dL (12.2-16.2) Hematocrit 40.1 % (36.0-46.0) Mean Corpuscular Volume 85.5 fL (80.0-100.0) Mean Corpuscular Hemoglobin 28.3 pg (28.0-32.0) Mean Corpuscular Hemoglobin Concent 33.1 g/dL (32.0-36.0) Red Cell Distribution Width 13.6 % (11.8-14.3) Platelet Count 222 10^3/uL (140-450) Mean Platelet Volume 9.3 fL (6.9-10.8) Neutrophils (%) (Auto) 78.7 % (37.0-80.0) Lymphocytes (%) (Auto) 14.3 % (10.0-50.0) Monocytes (%) (Auto) 6.3 % (0.0-12.0) Eosinophils (%) (Auto) 0.4 % (0.0-7.0) Basophils (%) (Auto) 0.3 % (0.0-2.0) Neutrophils # (Auto) 12.0 10 ^3/uL (1.6-8.6) Lymphocytes # (Auto) 2.2 10 ^3/uL (0.4-5.4) Monocytes # (Auto) 1.0 10 ^3/uL (0-1.3) Eosinophils # (Auto) 0.1 10 ^3/uL (0-0.8) Basophils # (Auto) 0 10 ^3/uL (0-0.2) Nucleated Red Blood Cells 0.1 % Prothrombin Time 11.0 sec (9.3-11.8) Prothrombin Time INR 1.04 (0.9-1.15) Activated Partial Thromboplast Time 74.3 SEC (24.5-34.5) Sodium Level 143 mmol/L (136-145) Potassium Level 3.3 mmol/L (3.5-5.1) Chloride Level 104 mmol/L (98-107) Carbon Dioxide Level 29 mmol/L (20-31) Anion Gap 10 (5-15) Blood Urea Nitrogen 18 mg/dL (9-23) Creatinine 1.15 mg/dL (0.550-1.02) Glomerular Filtration Rate Calc 56 mL/min (>90) BUN/Creatinine Ratio 15.7 (10.0-20.0) Serum Glucose 88 mg/dL (74-106) Calcium Level 9.0 mg/dL (8.7-10.4) Total Bilirubin 0.4 mg/dL (0.2-1.0) Aspartate Amino Transferase (AST) 176 U/L (13-40) Alanine Aminotransferase (ALT) 35 U/L (7-40) Alkaline Phosphatase 75 U/L (46-116) Troponin I High Sensitivity 10556 ng/L (</=34) Total Protein 6.9 g/dL (5.7-8.2) Albumin 4.2 g/dL (3.2-4.8) Test 12/30/25 01:19 05/15/25 17:10 05/15/25 16:04 Urine Color Light-yellow (Yellow) Urine Clarity Clear (Clear) Urine pH 5.5 (5.0-9.0) Urine Specific [place] 1.025 (1.001-1.035) Urine Protein Negative (Negative) Urine Ketones 3+ (Negative) Urine Blood Negative /uL (Negative) Urine Nitrite Negative (Negative) Urine Bilirubin Negative (Negative) Urine Urobilinogen Normal mg/dL (Negative) Urine Leukocyte Esterase Negative /uL (Negative) Urine RBC None seen /hpf (0 - 4) Urine Microscopic WBC 3 /HPF (0-5) Urine Squamous Epithelial Cells Few /hpf (<5) Urine Bacteria None seen /hpf (None Seen) Urine Glucose 4+ mg/dL (Normal) Thyroid Stimulating Hormone (TSH) 0.61 uIU/mL (0.55-4.78) Hemoglobin A1c 11.4 % A1C (<5.7) Other Laboratory Tests 05/16/25 05:24 05/16/25 03:11 Brief Hx & Hospital Course: History of Present Illness The patient is a 54-year-old female legally blind with past medical history of diabetes mellitus, hyperlipidemia, and hypertension who presented to [facility] ED with complaint of chest pain. Son/patient reports that she has been experiencing substernal chest pain since this morning, radiating from the throat down to the middle of the chest, both arms, rated 8/10 numeric scale, constant, dull sensation, associated with episodes of vomiting, getting worse that prompted this visit. Patient was seen and evaluated in the ED, laboratory data shows WBC 11.8, platelets 272, sodium 136, potassium 3.5, BUN 13, creatinine 1.06, GFR 62, glucose 405, hemoglobin A1c 11.4, TSH 0.61, calcium 9.8, troponin 545 trending up, blood pressure 139/89, heart rate 114,, temperature 99.1 F, O2 saturation 96% on oxygen. Chest x-ray show no acute cardiopulmonary disease. EKG was reviewed by cardiology and read as old WA and they recommended no intervention from cardiology at this time. Please see medication orders section in the computer. On my assessment, patient denied chest pain at this moment, no headache, dizziness, diaphoresis, currently on oxygen, no diarrhea, nausea, vomiting, fever, no chills. Patient was admitted for further evaluation and medical management. Course of hospitalization: Patient continued to have chest pain, with [place] [id number] this morning. Patient was emergently taken to cardiac catheterization by Dr. Nic Quintero. Findings of multivessel disease with 100% occluded RCA. Patient also was found to have 95% mid LAD blockage as well as 70% circumflex. Decision was made for Sandra coronary thrombectomy as well as angioplasty without stent placement. Patient was transferred to the recovery area and weaned off dopamine. While in the recovery room patient's blood pressure became soft with dopamine restarted 6 micrograms/minute. Given RV infarct, fluid bolus was given to the patient followed by intravenous normal saline at 100 mL/hour. Echocardiogram was performed, pending read by donor relations officer. Patient was placed on regular insulin sliding scale for blood sugar control. Long discussion was made with the patient regarding plan of care including transferred to higher level of care for coronary artery bypass grafting given severity of CAD. Patient verbalizes agreement. Patient is currently being evaluated by [facility] with probability of patient being transferred pending on report from donor relations officer and bed availability. Patient will be continued on heparin drip, dopamine as needed for map less than 65 mm of mercury, as well as with holding antiplatelet medication other than recent aspirin administration. Ejection fraction was noted to be approximately 20 % to 25% on left ventriculogram, for which guideline directed medical therapy will be held given use of vasopressors. Patient is chest pain-free and is hemodynamically stable for transfer to higher level of care. Physical examination General: Alert and Oriented x3. No acute distress. Well-nourished. Eyes: EOMI. Anicteric. Legally blind. 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 Lungs: Clear to auscultation bilaterally. No accessory muscle use. Cardiovascular: Regular rate and rhythm. No murmur. No JVD. Abdomen: Soft, non-tender and non-distended. No palpable masses. Extremities: No edema. Non-tender. Skin: No rashes or lesions. Warm. Neurologic: No focal neurological deficits. CN II-XII grossly intact, but not individually tested. Psychiatric: Cooperative. Appropriate mood and affect. Total time spent with patient discussing and formulating plan of care: 35 minutes. This medical document was created using an electronic medical record system with [employer] dictation system. Although this document has been carefully reviewed, there may still be some phonetic and typographical errors. These areas are purely typographical due to imperfections of the software programs, and do not reflect any compromise in the patient's medical care. Consults/Reason for consult Cardiology: NSTEMI type 1 Operations or Procedures Left heart catheterization with PTCA to RCA Condition at Discharge: Guarded Final Diagnosis/Problems List NSTEMI type 1, multivessel coronary artery disease -Multivessel coronary artery disease -NSTEMI type 1 -diabetes mellitus -sirs with organ dysfunction -glaucoma -primary hypertension -dyslipidemia -acute systolic heart failure Discharge Disposition: Acute Care Facility Discharge Instruct/Medications Diet: Consistent carbohydrate, Cardiac 2g Na,low cholest Activity: No Restrictions, As Tolerated Follow Up/Referral: Per accepting provider Medications: Refer to medication reconciliation form 36 Discharge Statement: "Patient was advised to return to the ER or call 911 if any headaches, dizziness, shortness of breath, chest pain, abdominal pain, bleeding, fevers, or worsening of medical condition. Patient was counseled about treatment plan, medications, possible side effects, patientverbalized understanding. All questions were answered to the best of my ability. This discharge took greater then 30 minutes in planning, reviewing documentation, counseling the patient, and discussing with other team members." ASSESSMENT ASSESSMENT Assessment NSTEMI type 1, multivessel coronary artery disease Date of Service: May 16, 2025 Billing Provider: MIKAYLA REBOLLEDO NP Common Visit Codes: 91639-GXA/OBS DISCH DAY >30min MIKAYLA REBOLLEDO NP May 16, 2025 17:49
[2025-05-16 18:00] LABS: Triglycerides 128 mg/dL (< 150)
[2025-05-16 18:02] LABS: Cholesterol 170 mg/dL (< 200); HDL Cholesterol 52 mg/dL (40-59)
[2025-05-16] MEDS: ATORVASTATIN 20 MG TAB PO SCH (21:53)
[2025-05-16] MEDS ORDERED: ENOXAPARIN SOD 60 MG/0.6 ML SYRINGE SC SCH (22:00)
[2025-05-16 23:19] LABS: INR 1.07 (0.9-1.15); Prothrombin Time 11.3 sec (9.3-11.8)
[2025-05-16 23:21] LABS: Partial Thromboplastin Time > 139.0 SEC (24.5-34.5)
--- NOTE | 2025-05-16 23:36 | DVHINCON2 ---
Date of service: May 16, 2025 Referring Physician Rashida Reason for Consultation Chest pain, elevated troponin History of Present Illness This is a 54-year-old female legally blind with a past medical history of diabetes mellitus, hyperlipidemia, and hypertension who presented to the ED with a complaint of chest pain. Patient and her son at bedside reports that she has been experiencing substernal chest pain since this morning, radiating from the throat down to the middle of the chest, both arms, rated 8/10, constant, dull sensation, associated with episodes of vomiting. WBC 11.8 K 3.5. Troponin 545 > 1106 > 2814 > 27325. Chest x-ray shows no acute cardiopulmonary disease. EKG showed QS pattern in 2, 3, and aVF. Patient was admitted to the hospital. I am asked to consult on this patient. Patient will emergently be taken to the golf course laborer. Allergies: Coded Allergies: NO KNOWN ALLERGIES (Unverified , 05/15/25) Current Medications Current Medications Medications (Trade) Dose Ordered Sig/Sunita Route PRN Reason Start Time Stop Time Status Last Admin Aspirin 81 mg DAILY PO 05/16/25 10:00 Amlodipine Besylate (Norvasc Tablet) 5 mg DAILY PO 05/16/25 10:00 05/16/25 14:45 DC Nitroglycerin (Ntrostat Sublingual) 0.4 mg Q5MINP PRN SL FOR CHEST PAIN 05/15/25 23:00 Morphine Sulfate 2 mg Q30M PRN IV FOR CHEST PAIN 05/15/25 23:00 Dopamine HCl/ Dextrose 250 ml @ 9.863 mls/ hr Q24H IV 05/16/25 03:45 05/16/25 03:45 Prochlorperazine Edisylate (Compazine Inj) 5 mg Q4HPRN PRN IV NAUSEA / VOMITING 05/16/25 05:15 05/16/25 05:28 Enoxaparin Sodium (Lovenox) 50 mg Q12HR SC 05/16/25 22:00 05/16/25 15:31 DC Sodium Chloride 1,000 ml @ 100 mls/hr Q10H IV 05/16/25 14:45 05/16/25 15:00 Atorvastatin Calcium (Lipitor) 40 mg HS PO 05/16/25 22:00 05/16/25 21:53 Insulin Human Lispro (HumaLOG) AC SC 05/16/25 17:00 UNV Diagnostic Test (Pha) (Accu-Chek Comfort Curve T) 1 strip [facility] 05/16/25 17:00 05/16/25 22:01 Insulin Human Lispro (HumaLOG) [facility] 05/16/25 17:00 05/16/25 19:37 DC 05/16/25 17:20 Dextrose 50 ml UD PRN IV Blood Sugar LESS THAN 60 05/16/25 15:00 Heparin Sodium/ Dextrose 250 ml @ 6 mls/hr Q24H IV 05/16/25 15:30 05/16/25 16:47 Insulin Human Lispro (HumaLOG) [facility] 05/16/25 22:00 Review of Systems Constitutional: reports: fatigue; denies: chills, diaphoresis, fever, malaise, sweats, weakness, others EENTM: reports: others (blind in both eyes); denies: blurred vision, double vision, ear bleeding, ear discharge, ear drainage, ear pain, ear ringing, eye pain, eye redness, hearing loss, mouth pain, mouth swelling, nasal discharge, nose bleeding, nose congestion, nose pain, photophobia, tearing, throat pain, throat swelling, voice changes Respiratory: reports: SOB at rest, shortness of breath, SOB with excertion; de nies: cough, hemoptysis, orthopnea, stridor, wheezing, others Cardiovascular: reports: chest pain; denies: dizzy spells, diaphoresis, Dyspnea on exertion, edema, irregular heart beat, left arm pain, lightheadedness, palpitations, PND, syncope, others Gastrointestinal: reports: vomiting; denies: abdomen distended, abdominal pain, blood streaked bowels, constipated, diarrhea, dysphagia, difficulty swallowing, hematemesis, melena, nausea, poor appetite, poor fluid intake, rectal bleeding, rectal pain, others Genitourinary: denies: abnormal vagina bleeding, burning, dyspareunia, dysuria, flank pain, frequency, hematuria, incontinence, pain, , vagina discharge, urgency, others Neurological: denies: dizziness, fainting, headache, left sided numbness, left sided weakness, numbness, paresthesia, pre-existing deficit, right sided numbness, right sided weakness, seizure, speech problems, tingling, tremors, weakness, others Musculoskeletal: denies: back pain, gout, joint pain, joint swelling, muscle pain, muscle stiffness, neck pain, others Integumetry: denies: bruises, change in color, change in hair/nails, dryness, laceration, lesions, lumps, rash, wounds, others Allergic/Immunocompromised: denies: Difficulty Healing, Frequent Infections, Hives, Itching, others Hematologic/Lymphatic: denies: anemia, blood clots, easy bleeding, easy bruising, swollen glands, others Endocrine: denies: excessive hunger, excessive sweating, excessive thirst, excessive urination, flushing, intolerance to cold, intolerance to heat, unexplained weight gain, unexplained weight loss, others Psychiatric: denies: anxiety, bipolar disorder, depression, hopeless, panic disorder, schizophrenia, sleepless, suicidal, others Vital Signs Vital Signs Date Time Temp Pulse Resp B/P (MAP) Pulse Ox O2 Delivery O2 Flow Rate FiO2 05/16/25 20:43 17 99 Nasal Cannula* 2 28 05/16/25 19:15 82 113/55 (74) 05/16/25 07:30 98.4 98.4 Physical Exam GENERAL: Alert and oriented x 3. No acute distress. EYES: PERRL, EOMI. Anicteric. HENT: Moist mucous membranes. Blind in both eyes. LUNGS: Clear to auscultation bilaterally. CARDIOVASCULAR: Regular rate and rhythm. ABDOMEN: Soft, nontender and nondistended. EXTREMITIES: No edema. NEUROLOGIC: No focal neurological deficits. SKIN: Warm, dry. Labs/Diagnostic Data Labs Test 05/16/25 17:34 05/16/25 17:04 05/16/25 16:33 05/16/25 03:11 Range/Units White Blood Count 12.5 H 4.4-10.8 10^3/uL Red Blood Count 4.39 4.0-5.20 10^6/uL Hemoglobin 12.3 12.2-16.2 g/dL Hematocrit 37.4 36.0-46.0 % Mean Corpuscular Volume 85.2 80.0-100.0 fL Mean Corpuscular Hemoglobin 27.9 L 28.0-32.0 pg Mean Corpuscular Hemoglobin Concent 32.8 32.0-36.0 g/dL Red Cell Distribution Width 13.9 11.8-14.3 % Platelet Count 224 140-450 10^3/uL Mean Platelet Volume 9.1 6.9-10.8 fL Neutrophils (%) (Auto) 78.2 37.0-80.0 % Lymphocytes (%) (Auto) 15.3 10.0-50.0 % Monocytes (%) (Auto) 6.1 0.0-12.0 % Eosinophils (%) (Auto) 0.2 0.0-7.0 % Basophils (%) (Auto) 0.2 0.0-2.0 % Neutrophils # (Auto) 9.7 H 1.6-8.6 10 ^3/uL Lymphocytes # (Auto) 1.9 0.4-5.4 10 ^3/uL Monocytes # (Auto) 0.8 0-1.3 10 ^3/uL Eosinophils # (Auto) 0 0-0.8 10 ^3/uL Basophils # (Auto) 0 0-0.2 10 ^3/uL Nucleated Red Blood Cells 0.0 % Lactate Dehydrogenase 592 H 120-246 U/L Triglycerides Level 128 < 150 mg/dL Cholesterol Level 170 < 200 mg/dL LDL Cholesterol 94 < 100 mg/dL HDL Cholesterol 52 40-59 mg/dL POC Glucose 181 H 70-106 mg/dl Blood Gas Specimen Type Arterial Blood Gas Sample Site Right radial Blood Gas Patient Temperature 37.0 Arterial Blood Date Drawn [id number] Arterial Blood pH 7.405 7.350-7.450 Arterial Blood Partial Pressure CO2 44.2 32.0-45.0 mmHg Arterial Blood Partial Pressure O2 59.1 L 83.0-108.0 mmHg Arterial Blood HCO3 27.1 21.0-28.0 mmol/L Arterial Blood Oxygen Saturation 87.3 L 94.0-98.0 % Arterial Blood Base Excess 2.0 -2.0-3.0 mmol/L Arterial Blood Oxyhemoglobin 85.9 L 94.0-98.0 % Arterial Blood Carboxyhemoglobin 1.3 0.5-1.5 % Arterial Blood Methemoglobin 0.3 0.0-1.5 % Arterial Blood Deoxyhemoglobin 12.5 H 0.0-5.0 % Haile Test Yes Blood Gas Total Hemoglobin 11.80 L 12.0-16.0 g/dL Blood Gas Modality Room air Blood Gas Spontaneous Rate 14 FiO2 % 21.0 Prothrombin Time 11.0 9.3-11.8 sec Prothrombin Time INR 1.04 0.9-1.15 Activated Partial Thromboplast Time 74.3 *H 24.5-34.5 SEC Sodium Level 143 # 136-145 mmol/L Potassium Level 3.3 L 3.5-5.1 mmol/L Chloride Level 104 # 98-107 mmol/L Carbon Dioxide Level 29 20-31 mmol/L Anion Gap 10 5-15 Blood Urea Nitrogen 18 9-23 mg/dL Creatinine 1.15 H 0.550-1.02 mg/dL Glomerular Filtration Rate Calc 56 >90 mL/min BUN/Creatinine Ratio 15.7 10.0-20.0 Serum Glucose 88 74-106 mg/dL Calcium Level 9.0 8.7-10.4 mg/dL Total Bilirubin 0.4 0.2-1.0 mg/dL Aspartate Amino Transferase (AST) 176 H 13-40 U/L Alanine Aminotransferase (ALT) 35 7-40 U/L Alkaline Phosphatase 75 46-116 U/L Troponin I High Sensitivity 91965 *H </=34 ng/L Total Protein 6.9 5.7-8.2 g/dL Albumin 4.2 3.2-4.8 g/dL Test 05/16/25 01:19 05/15/25 17:10 05/15/25 16:04 Range/Units Urine Color Light-yellow Yellow Urine Clarity Clear Clear Urine pH 5.5 5.0-9.0 Urine Specific [place] 1.025 1.001-1.035 Urine Protein Negative Negative Urine Ketones 3+ H Negative Urine Blood Negative Negative /uL Urine Nitrite Negative Negative Urine Bilirubin Negative Negative Urine Urobilinogen Normal Negative mg/dL Urine Leukocyte Esterase Negative Negative /uL Urine RBC None seen 0 - 4 /hpf Urine Microscopic WBC 3 0-5 /HPF Urine Squamous Epithelial Cells Few <5 /hpf Urine Bacteria None seen None Seen /hpf Urine Glucose 4+ H Normal mg/dL Thyroid Stimulating Hormone (TSH) 0.61 0.55-4.78 uIU/mL Hemoglobin A1c 11.4 H <5.7 % A1C Assessment NSTEMI type 1, multivessel coronary artery disease. Diabetes mellitus. SIRS with organ dysfunction. Glaucoma. Primary hypertension. Dyslipidemia. Acute systolic heart failure. Plan/Recommendation I agree with your ongoing assessment and care of [facility]. Risks and benefits discussed with the patient. Echocardiogram. Morphine and [place] for pain management. Aspirin, Lipitor, Metoprolol. Heparin drip per pharmacy. Additional plan as per the hospital course. Critical care time of 90 minutes provided to include time spent evaluation of patient at bedside, when appropriate patient/family education for diagnosis, treatment plan, review of pertinent medical information and discussion of care with specialty providers and PCP. Plan discussed with: Patient MALENA MOHAN MD May 16, 2025 22:23
[2025-05-17] VITALS (93 sets, daily range): BP systolic 84–134; BP diastolic 39–77; PULSE 82–119; RESP 10–24; TEMP 97.8–98; O2SAT 94–100
[2025-05-17] MEDS: HEPARIN DRIP/D5W 100UNITS/ML 250 ML IV SCH (00:30)
[2025-05-17 03:42] LABS: Hematocrit 32.3 % (36.0-46.0); Hemoglobin 10.6 g/dL (12.2-16.2); Mean Corpuscular Hemoglobin 28.2 pg (28.0-32.0); Mean Corpuscular Volume 85.4 fL (80.0-100.0); Nucleated Red Blood Cells % 0.3 %
[2025-05-17 04:04] LABS: Anion Gap 8 (5-15); Carbon Dioxide 26 mmol/L (20-31); Chloride 104 mmol/L (98-107); Potassium 3.8 mmol/L (3.5-5.1); Sodium 138 mmol/L (136-145)
[2025-05-17 04:08] LABS: Calcium 8.5 mg/dL (8.7-10.4)
[2025-05-17 04:10] LABS: BUN/Creatinine Ratio 15.1 (10.0-20.0); Blood Urea Nitrogen 13 mg/dL (9-23)
[2025-05-17 04:11] LABS: Magnesium 2.1 mg/dL (1.6-2.6)
[2025-05-17 04:13] LABS: Glucose 218 mg/dL (74-106)
[2025-05-17 08:08] LABS: INR 1.0 (0.9-1.15); Partial Thromboplastin Time 34.7 SEC (24.5-34.5); Prothrombin Time 10.6 sec (9.3-11.8)
[2025-05-17] MEDS ORDERED: HEPARIN DRIP/D5W 100UNITS/ML 250 ML IV SCH ×2 (08:45)
--- NOTE | 2025-05-17 09:10 | DVHPN2 ---
Subjective Patient denies any chest pain at this time Reviewed: Care Plan, H&P, Labs, Medications Changes from previous H/P or p: No Changes General: Per HPI Eyes: No Pain, No Vision change, No Conjunctivae inflammation, No Eyelid inflammation; Other (Blind in both eyes); No Redness ENT: No Ear pain, No Ear discharge, No Nose pain, No Nose discharge, No Nose congestion, No Mouth pain, No Mouth swelling, No Throat pain, No Throat swelling, No Other Cardiovascular: Chest Pain; No Palpitations, No Orthopnea, No Paroxysmal Noc. Dyspnea, No Edema, No Lt Headedness, No Other Respiratory: No Cough, No Dry; Shortness of breath, SOB with excertion; No Wheezing, No Hemoptysis, No Pleuritic Pain, No Sputum; Other (SOB at rest) Gastrointestinal: No Nausea; Vomiting; No Abdominal Pain, No Diarrhea, No Constipation, No Melena, No Hematochezia, No Other Genitourinary: No Dysuria, No Frequency, No Incontinence, No Hematuria, No Retention, No Other Musculoskeletal: No other, No neck pain, No shoulder pain, No arm pain, No back pain, No hand pain, No leg pain, No foot pain Skin: No Rash, No Lesions, No Jaundice, No Bruising, No Other Objective Vitals Vital Signs Date Time Temp Pulse Resp B/P (MAP) Pulse Ox O2 Delivery O2 Flow Rate FiO2 05/17/25 07:30 110 20 94 Nasal Cannula* 2 28 05/17/25 06:45 05/17/25 04:00 98.0 98.0 Intake/Output Intake and Output 05/17/25 06:59 Intake Total 2385.534 ml Output Total 800 ml Balance 1585.534 ml Intake Oral 480 ml IV Total 1905.534 ml Output Urine Total 800 ml General Appearance: Alert, Oriented X3, Cooperative HEENT: Atraumatic, PERRLA Lungs: Clear to auscultation, Normal air movement Cardiovascular: Normal S1, Normal S2 Abdomen: Normal bowel sounds, Soft, No tenderness, No hepatospenomegaly Musculoskeletal: Normal sensory function, Normal motor function Skin: Dry, Intact Psych/Mental Status: Mental status NL, Mood NL Medications Current Medications Medications Dose Ordered Sig/Sunita Route Start Time Stop Time Status Last Admin Dose Admin Aspirin 81 mg DAILY PO 05/16/25 10:00 Acetaminophen/ Hydrocodone Bitart 1 tab Q4HP PRN PO 05/15/25 20:00 Ondansetron HCl 4 mg Q4HP PRN IV 05/15/25 20:00 05/16/25 15:25 4 MG Docusate Sodium 100 mg BIDPRN PRN PO 05/15/25 20:00 Acetaminophen 650 mg Q6HP PRN PO 05/15/25 20:00 Nitroglycerin 0.4 mg Q5MINP PRN SL 05/15/25 23:00 Morphine Sulfate 2 mg Q30M PRN IV 05/15/25 23:00 Dopamine HCl/ Dextrose 250 ml @ 9.863 mls/ hr Q24H IV 05/16/25 03:45 05/17/25 02:40 9.863 MLS/HR Prochlorperazine Edisylate 5 mg Q4HPRN PRN IV 05/16/25 05:15 05/16/25 05:28 5 MG Sodium Chloride 1,000 ml @ 100 mls/hr Q10H IV 05/16/25 14:45 05/17/25 03:30 100 MLS/HR Atorvastatin Calcium 40 mg HS PO 05/16/25 22:00 05/16/25 21:53 40 MG Insulin Human Lispro AC SC 05/16/25 17:00 UNV Diagnostic Test (Pha) 1 strip ACHS 05/16/25 17:00 05/17/25 06:31 1 STRIP Dextrose 50 ml UD PRN IV 05/16/25 15:00 Insulin Human Lispro ACHS SC 05/16/25 22:00 05/17/25 06:30 6 UNITS Heparin Sodium/ Dextrose 250 ml @ 6 mls/hr Q24H IV 05/17/25 08:45 Laboratory Results Laboratory Tests 05/17/25 03:15 Chemistry Test 05/17/25 03:15 Calcium Level 8.5 mg/dL (8.7-10.4) L Magnesium Level 2.1 mg/dL (1.6-2.6) Coagulation Test 05/16/25 22:12 05/17/25 07:42 Prothrombin Time 11.3 sec (9.3-11.8) 10.6 sec (9.3-11.8) Prothrombin Time INR 1.07 (0.9-1.15) 1.00 (0.9-1.15) Activated Partial Thromboplast Time > 139.0 SEC (24.5-34.5) *H 34.7 SEC (24.5-34.5) H Lipid panel Test 05/16/25 17:34 Cholesterol Level 170 mg/dL (< 200) HDL Cholesterol 52 mg/dL (40-59) Triglycerides Level 128 mg/dL (< 150) Urinalysis Test 05/16/25 01:19 Urine Color Light-yellow (Yellow) Urine Clarity Clear (Clear) Urine pH 5.5 (5.0-9.0) Urine Specific [place] 1.025 (1.001-1.035) Urine Protein Negative (Negative) Urine Ketones 3+ (Negative) H Urine Blood Negative /uL (Negative) Urine Nitrite Negative (Negative) Urine Bilirubin Negative (Negative) Urine Urobilinogen Normal mg/dL (Negative) Urine Leukocyte Esterase Negative /uL (Negative) Urine RBC None seen /hpf (0 - 4) Urine Microscopic WBC 3 /HPF (0-5) Urine Squamous Epithelial Cells Few /hpf (<5) Urine Bacteria None seen /hpf (None Seen) Urine Glucose 4+ mg/dL (Normal) H Blood Gas Results Test 05/16/25 16:33 Arterial Blood pH 7.405 (7.350-7.450) FiO2 % 21.0 Labs and/or images reviewed: Labs reviewed by me, Image(s) reviewed by me Assessment/Plan Assessment/Plan Impression: -Multivessel coronary artery disease -NSTEMI type 1 -diabetes mellitus -sirs with organ dysfunction -glaucoma -primary hypertension -dyslipidemia -acute systolic heart failure Plan: Events: Patient has been turned down for CT revascularization. Discussed case with case management. Patient at this time is chest pain free. Recommend Dr. Quintero, vegetable packer speak with other facilities for possible high-risk PCI given patient's poor ejection fraction. -stop IV fluids -difficulty maintaining appropriate PTT. We will stop heparin drip and transitioned to Lovenox -regular insulin sliding scale -echocardiogram : Pending review preliminary EF 17% -weaned dopamine drip to keep map greater than 65 mm of mercury -repeat labs in a.m. -social service consultation for transfer to higher level of care Critical care time spent with patient discussing and formulating plan of care: 40 minutes. This does not include time spent performing procedures. This medical document was created using an electronic medical record system with [employer] dictation system. Although this document has been carefully reviewed, there may still be some phonetic and typographical errors. These areas are purely typographical due to imperfections of the software programs, and do not reflect any compromise in the patient's medical care. Plan discussed with: Patient, Other (RN) My Orders Orders - MIKAYLA REBOLLEDO NP Procedure Category Date Status Time Sodium Chloride 0.9% PHA 05/16/25 In Process 14:45 Heparin Per CASIE 05/16/25 In Process Standardized Proce 15:28 Discontinue All Im CASIE 05/16/25 In Process Injections 15:28 Stat Ekg For Chest CASIE 05/16/25 In Process Pain 15:28 Abg W/ Co-Ox RT 05/16/25 Logged 16:08 Imaging Transfer ORDERS 05/16/25 Transmitted Request 16:08 Heparin Per Pharmacy CASIE 05/16/25 In Process Protocol 16:23 Discharge DISCHARGE 05/16/25 Transmitted 17:39 Mrsa Screen WARD 05/16/25 In Process 19:46 Chest Xray 1 View XY 05/17/25 Taken 07:47 Mrsa Screen WARD 05/17/25 Uncollected 08:07 * Dietary Consult CONS 05/17/25 Transmitted 08:31 * Wound Consult CONS 05/17/25 Transmitted Heparin Drip/D5w PHA 05/17/25 In Process 100units/Ml 08:45 Enoxaparin Sodium PHA 05/17/25 Transmitted (Lovenox) 10:00 Date of Service: May 17, 2025 Billing Provider: MIKAYLA REBOLLEDO NP Common Visit Codes: 85962-[id number] CARE 30-74 MIN MIKAYLA REBOLLEDO NP May 17, 2025 09:10
--- NOTE | 2025-05-17 09:18 | DVH ---
EXAM: XY CHEST XRAY 1 VIEW HISTORY: chf TECHNIQUE: 1 view of the chest COMPARISON: XY CHEST XRAY 1 VIEW on DOS: 05/15/25 FINDINGS/IMPRESSION: LUNGS: Central pulmonary vascular congestion with the peripheral interstitial edema. Trace fluid along the right minor fissure. MEDIASTINUM: Unremarkable. BONES: No acute osseous abnormality. OTHER: None.
[2025-05-17] MEDS: ENOXAPARIN SOD 60 MG/0.6 ML SYRINGE SC SCH (10:23)
--- NOTE | 2025-05-17 10:31 | DVHPN2 ---
Progress Note - Dictate Date Seen: May 17, 2025 Medical Necessity Reason Pt with a Central, PICC or Fol: No Subjective Fasting hyperglycemia otherwise well controlled. NAEO. No complaints. vital signs Vital Sign Date Time Temp Pulse Resp B/P (MAP) Pulse Ox O2 Delivery O2 Flow Rate FiO2 05/17/25 08:30 18 99 Nasal Cannula* 2 28 05/17/25 07:30 110 05/17/25 06:45 05/17/25 04:00 98.0 98.0 Total Intake and Output 05/16/25 05/16/25 05/17/25 15:00 23:00 07:00 Intake Total 132.363 ml 1186.379 ml 1066.792 ml Output Total 800 ml Balance 132.363 ml 1186.379 ml 266.792 ml medications Current Medications Medications Dose Ordered Sig/Sunita Route Start Time Stop Time Status Last Admin Dose Admin Aspirin 81 mg DAILY PO 05/16/25 10:00 05/17/25 10:23 81 MG Acetaminophen/ Hydrocodone Bitart 1 tab Q4HP PRN PO 05/15/25 20:00 Ondansetron HCl 4 mg Q4HP PRN IV 05/15/25 20:00 05/16/25 15:25 4 MG Docusate Sodium 100 mg BIDPRN PRN PO 05/15/25 20:00 Acetaminophen 650 mg Q6HP PRN PO 05/15/25 20:00 Nitroglycerin 0.4 mg Q5MINP PRN SL 05/15/25 23:00 Morphine Sulfate 2 mg Q30M PRN IV 05/15/25 23:00 Dopamine HCl/ Dextrose 250 ml @ 9.863 mls/ hr Q24H IV 05/16/25 03:45 05/17/25 02:40 9.863 MLS/HR Prochlorperazine Edisylate 5 mg Q4HPRN PRN IV 05/16/25 05:15 05/16/25 05:28 5 MG Atorvastatin Calcium 40 mg HS PO 05/16/25 22:00 05/16/25 21:53 40 MG Insulin Human Lispro AC SC 05/16/25 17:00 UNV Diagnostic Test (Pha) 1 strip ACHS 05/16/25 17:00 05/17/25 06:31 1 STRIP Dextrose 50 ml UD PRN IV 05/16/25 15:00 Insulin Human Lispro ACHS SC 05/16/25 22:00 05/17/25 06:30 6 UNITS Enoxaparin Sodium 50 mg Q12HR SC 05/17/25 10:00 05/17/25 10:23 50 MG objective Gen - no acute distress HEENT - no thyromegaly CV - RRR Resp - CTAB Ext - no edema laboratory and microbiology Laboratory Tests 05/17/25 03:15 Test 05/17/25 03:15 Range/Units Serum Glucose 218 H 74-106 mg/dL Assessment/Plan # Type I NSTEMI # Uncontrolled type II DM with hyperglycemia # HTN # HLD - No glargine for now, may consider if persistent dysglycemia - Low intensity SSI lispro tidac, qhs - POC BG tidac, qhs - Hypoglycemia protocol - Diabetic diet Plan discussed with: Other (nurse) AURA NORWOOD MD May 17, 2025 10:31
[2025-05-17] MEDS: ENOXAPARIN SOD 60 MG/0.6 ML SYRINGE SC ONE (12:21)
[2025-05-17] MEDS: DOPamine 1600MCG/ML D5W 250 ML IV SCH (16:44)
--- NOTE | 2025-05-17 22:35 | DVHPN2 ---
Progress Note - Dictate Date Seen: May 17, 2025 Medical Necessity Reason Pt with a Central, PICC or Fol: No Subjective Patient was seen and evaluated in follow-up in the ICU. Patient underwent left and right heart catheterization, [place] selective left and right coronary artery angiography, right coronary artery angiography, mechanical thrombectomy of the right coronary artery with the help of the Penumbra catheter, balloon angioplasty of the right coronary artery, balloon angioplasty of proximal, mid, and distal lesion of the right coronary artery. Prior to performing the procedure: Right coronary artery proximally 100% acute on chronic occlusion. REBECCA grade 0 flow. Calcified artery, type 3 lesion and right coronary artery considered to be a dominant artery. Postprocedure, REBECCA grade 3 flow. No spasm, no dissection, no thrombosis. Calcified artery with REBECCA grade 3 flow has been noted from all the way from the mid region all the way to the distal region of the right coronary artery. At this time, advised aspirin one a day. Transfer to higher level of [facility]. The patient will call if she can qualify for open heart surgery. Discussed along with the patient's son in person. vital signs Vital Sign Date Time Temp Pulse Resp B/P (MAP) Pulse Ox O2 Delivery O2 Flow Rate FiO2 05/17/25 08:30 18 99 Nasal Cannula* 2 28 05/17/25 07:30 110 05/17/25 06:45 05/17/25 04:00 98.0 98.0 Total Intake and Output 05/16/25 05/16/25 05/17/25 15:00 23:00 07:00 Intake Total 132.363 ml 1186.379 ml 1066.792 ml Output Total 800 ml Balance 132.363 ml 1186.379 ml 266.792 ml medications Current Medications Medications Dose Ordered Sig/Sunita Route Start Time Stop Time Status Last Admin Dose Admin Aspirin 81 mg DAILY PO 05/16/25 10:00 05/17/25 10:23 81 MG Acetaminophen/ Hydrocodone Bitart 1 tab Q4HP PRN PO 05/15/25 20:00 Ondansetron HCl 4 mg Q4HP PRN IV 05/15/25 20:00 05/16/25 15:25 4 MG Docusate Sodium 100 mg BIDPRN PRN PO 05/15/25 20:00 Acetaminophen 650 mg Q6HP PRN PO 05/15/25 20:00 Nitroglycerin 0.4 mg Q5MINP PRN SL 05/15/25 23:00 Morphine Sulfate 2 mg Q30M PRN IV 05/15/25 23:00 Dopamine HCl/ Dextrose 250 ml @ 9.863 mls/ hr Q24H IV 05/16/25 03:45 05/17/25 02:40 9.863 MLS/HR Prochlorperazine Edisylate 5 mg Q4HPRN PRN IV 05/16/25 05:15 05/16/25 05:28 5 MG Atorvastatin Calcium 40 mg HS PO 05/16/25 22:00 05/16/25 21:53 40 MG Insulin Human Lispro AC SC 05/16/25 17:00 UNV Diagnostic Test (Pha) 1 strip ACHS 05/16/25 17:00 05/17/25 12:06 1 STRIP Dextrose 50 ml UD PRN IV 05/16/25 15:00 Insulin Human Lispro ACHS SC 05/16/25 22:00 05/17/25 12:07 3 UNITS Enoxaparin Sodium 50 mg Q12HR SC 05/17/25 10:00 05/17/25 10:23 50 MG objective GENERAL: Alert and oriented x 3. No acute distress. EYES: PERRL, EOMI. Anicteric. HENT: Moist mucous membranes. Blind in both eyes. LUNGS: Clear to auscultation bilaterally. CARDIOVASCULAR: Regular rate and rhythm. ABDOMEN: Soft, nontender and nondistended. EXTREMITIES: No edema. NEUROLOGIC: No focal neurological deficits. SKIN: Warm, dry. laboratory and microbiology Laboratory Tests 05/17/25 03:15 Test 05/17/25 03:15 Range/Units Serum Glucose 218 H 74-106 mg/dL Problem List NSTEMI type 1, multivessel coronary artery disease. Diabetes mellitus. SIRS with organ dysfunction. Glaucoma. Primary hypertension. Dyslipidemia. Acute systolic heart failure. Assessment/Plan Continued all current supportive medical care. Echocardiogram. Morphine and [place] for pain management. Aspirin, Lipitor. Heparin drip per pharmacy. DVT prophylactics. Dopamine drip. Additional plan as per the hospital course. Critical care time of 45 minutes provided to include time spent evaluation of patient at bedside, when appropriate patient/family education for diagnosis, treatment plan, review of pertinent medical information and discussion of care with specialty providers and PCP. Plan discussed with: Patient MALENA MOHAN MD May 17, 2025 13:04
--- NOTE | 2025-05-24 09:41 | DVHSR ---
APPROVED REPORT EXAM: Two-dimensional and M-mode echocardiogram with Doppler and color Doppler. Blood Pressure: 88/44 mmHg INDICATION coronary artery disease with multi vessel disease pre op CABG RISK FACTORS Height: 4'11, Weight: 115 DIMENSIONS LVDd 3.4 (3.8-5.7cm) LA (2D) 4.0 (1.9-4.0cm) Aortic Root 2.6 (2.0-3.7cm) LVDs 3.2 (2.5-4.0cm) LA (MM) (1.9-4.0cm) Aortic Cusp Exc 1.3 (1.5-2.0cm) EF (%) 15.0 (55-70%) Rt. Atrium 2.6 (1.9-4.0cm) Asc. Aorta 2.6 cm IVSd 0.7 (0.7-1.1cm) RV (D) 2.1 (1.8-2.4cm) PWd 0.5 (0.7-1.1cm) Mitral Valve Mitral Mitral Stenosis E wave 0.47m/s MV Mean GR. mmHg A wave 0.87m/s MV Peak GR. 40mmHg E/A ratio 0.5 2D MVA cm2 DECEL Time 108ms PRESS 1/2 Time ms Aortic Valve Aortic Valve Aortic Stenosis V1 0.79m/s AO Mean GR. 3mmHg V2 1.04m/s AO Peak GR. 5mmHg LVOT Diameter 1.6 (1.8-2.4cm) Doppler NICK 1.53cm2 Pulmonic Valve V2 0.66m/s Tricuspid Valve TR Velocity 2.14m/s RVSP 23mmHg Other Information Quality : Technically Limited Rhythm : Technically limited study due to body habitus.patient position. Conclusion MODERATELY DILATED LV MAJOR HYPOKINESIS OF LV LV EF IS ONLY 15% MAJOR HYPOKINESIS OF ENTIRE ANTERIOR LV WALL NO EFFUSION NORMAL VALVES
== END 2025-05-17 22:02 | disposition short-term general hospital (02) | DRG 174 ==
LOC: ER 15:44 → OVERFLOW 22:55 → ICU WEST 05-16 19:35
PROVIDERS: ADMIT Nurse Practitioner Acute Care; ATTEND Nurse Practitioner Acute Care
PROC: 02703ZZ Dilation of Coronary Artery, One Artery, Percutaneous Approach (ICD-10-PCS; principal; 2025-05-16)
PROC: 02C03ZZ Extirpation of Matter from Coronary Artery, One Artery, Percutaneous Approach (ICD-10-PCS; 2025-05-16)
PROC: 4A023N7 Measurement of Cardiac Sampling and Pressure, Left Heart, Percutaneous Approach (ICD-10-PCS; 2025-05-16)
PROC: B211YZZ Fluoroscopy of Multiple Coronary Arteries using Other Contrast (ICD-10-PCS; 2025-05-16)
PROC: B215YZZ Fluoroscopy of Left Heart using Other Contrast (ICD-10-PCS; 2025-05-16)
PROC: 04HY32Z Insertion of Monitoring Device into Lower Artery, Percutaneous Approach (ICD-10-PCS; 2025-05-16)
PROC: B41FYZZ Fluoroscopy of Right Lower Extremity Arteries using Other Contrast (ICD-10-PCS; 2025-05-16)
DX: I21.4 Non-ST elevation (NSTEMI) myocardial infarction (principal); R57.0 Cardiogenic shock; I50.21 Acute systolic (congestive) heart failure; R65.11 Systemic inflammatory response syndrome (SIRS) of non-infectious origin with acute organ dysfunction; I11.0 Hypertensive heart disease with heart failure; E11.65 Type 2 diabetes mellitus with hyperglycemia; H40.9 Unspecified glaucoma; E78.5 Hyperlipidemia, unspecified; I25.10 Atherosclerotic heart disease of native coronary artery without angina pectoris; R74.01 Elevation of levels of liver transaminase levels; E87.6 Hypokalemia; E11.319 Type 2 diabetes mellitus with unspecified diabetic retinopathy without macular edema; Z79.84 Long term (current) use of oral hypoglycemic drugs
CPT/HCPCS: 36415; 36600; 71045; 75710; 80048; 80053; 80061; 81001; 82805; 82962; 83036; 83615; 83735; 84443; 84484; 85025; 85610; 85730; 87081; 92941; 92973; 93005; 93306; 93458; 96365; 96372; 96375; 99152; C1725; G0378; J1815; J2250; J2405; Q9967